=== PATIENT | male | born 1965 | race Caucasian/White ===

== ENCOUNTER 2016-11-15 04:35 | Inpatient (IN) | payer OTHER, MEDICARE ==
[~2016-11-15] VITALS: Ht 165.1 cm; Wt 56.9 kg
[2016-11-15] VITALS (20 sets, daily range): BP systolic 142–199; BP diastolic 77–102; PULSE 62–154; RESP 16–26; TEMP 97.6–99.7; O2SAT 94–100
[~2016-11-15 04:35] MED LIST: ASPI81CH CHEW; CARV12.52 PO; DULA10IN SQ; GABA300C5 PO; HUMALOG SQ; LEVA500T PO; LEVEMIR SQ; LISI10TA3 PO; METF500T PO; METO10TA PO; MULT1CHW70; PANT40TA3 PO
[2016-11-15] MEDS ORDERED: IOHEXOL 350 MG/ML 10 ML VIAL (for RAD DIAG) IVCONTRAST ONE (04:36)
[2016-11-15] MEDS ORDERED: ONDANSETRON HCL 4 MG/2 ML VIAL ONE (04:47)
[2016-11-15] MEDS ORDERED: NITROGLYCERIN 0.4 MG SL 25 TABS/BTL SL STA (04:50)
[2016-11-15] MEDS ORDERED: SODIUM CHLOR 0.9% 1000 ML INJ 1,000 ML IV ONE ×2 (04:50→05:00)
[2016-11-15] MEDS ORDERED: ASPIRIN 81 MG CHEW TAB PO STA (04:50)
[2016-11-15] MEDS ORDERED: METOCLOPRAMIDE HCL 10 MG/2 ML VIAL ONE (04:57)
[2016-11-15] MEDS ORDERED: ONDANSETRON HCL 4 MG/2 ML VIAL IV PUSH ONE (05:00)
[2016-11-15] MEDS ORDERED: SODIUM CHLORIDE 0.9% FLUSH 10 ML FLUSH IVF PRN (05:00)
[2016-11-15] MEDS ORDERED: METOCLOPRAMIDE HCL 10 MG/2 ML VIAL IV PUSH ONE (05:00)
[2016-11-15] MEDS ORDERED: NITROGLYCERIN-D5W 50 MG/250 ML 250 ML IV PRN (05:00)
[2016-11-15 05:04] LABS: I-STAT POTASSIUM 4.6 MMOL/L (3.5-4.9); I-STAT SODIUM 138 MMOL/L (138-146)
[2016-11-15 05:08] LABS: AUTOMATED NEUTROPHIL # 10.2 TH/MM3 (1.8-7.7); BASOPHIL # 0.1 TH/MM3 (0-0.2); BASOPHIL % 0.5 % (0.0-2.0); EOSINOPHIL # 0.2 TH/MM3 (0-0.4); EOSINOPHIL % 0.8 % (0.0-4.0); HEMATOCRIT 47.4 % (39.0-51.0); LYMPH % 37.7 % (9.0-44.0); LYMPHOCYTE # 7.4 TH/MM3 (1.0-4.8); MEAN CELL VOLUME 94.3 FL (80.0-100.0); MEAN CORPUSCULAR HEMOGLOBIN 32.3 PG (27.0-34.0); MEAN CORPUSCULAR HGB CONC 34.2 % (32.0-36.0); MONO % 9.5 % (0.0-8.0); NEUT % 51.5 % (16.0-70.0); PLATELET COUNT 425 TH/MM3 (150-450); RED BLOOD COUNT 5.03 MIL/MM3 (4.50-5.90); RED CELL DISTRIBUTION WIDTH 13.2 % (11.6-17.2); WHITE BLOOD COUNT 19.7 TH/MM3 (4.0-11.0)
--- NOTE | 2016-11-15 05:12 | PD ---
HPI Chief Complaint: STEMI Alert Time Seen by Provider: 04:45 Travel History International Travel<30 days: No Contact w/Intl Traveler<30days: No Traveled to known affect area: No History of Present Illness HPI The patient is a 51 year old male who presents to the [facility] emergency department with a history of coronary artery disease, diabetes mellitus, history of systolic congestive heart failure, and gastroparesis who presents with nausea and vomiting that began suddenly at 6 PM last night. He has had intractable vomiting since then. His significant other at the bedside reports that about an hour prior to arrival he began to have shortness of breath. He denies having any chest pain. He reports that he has back pain and midepigastric abdominal pain. He reports that both of those sites of pain are similar to when he has had intractable vomiting like this. The patient reports that his usual Zofran at home has not been helping. On review of systems otherwise, the patient denies any recent fevers, worsening cough or congestion, neck pain, diarrhea, urinary symptoms, or neurologic symptoms. [facility] Past Medical History Narrative Medical The patient's past medical history is significant for gastroparesis, diabetes mellitus, history of coronary artery disease status post HI in 2004 and stent placement, history of congestive heart failure, history of hypertension, hyperlipidemia, depression. Arthritis: Yes (in hands) Asthma: No Autoimmune Disease: No Blood Disorders: No Heart Rhythm Problems: Yes Cancer: No Cardiovascular Problems: Yes (HI WITH STENT, PACER/DEFIB, CHF) High Cholesterol: Yes Chemotherapy: No Chest Pain: Yes Congestive Heart Failure: Yes COPD: No Diabetes: Yes Patient Takes Glucophage: No Diminished Hearing: No Endocrine: Yes Gastrointestinal Disorders: Yes Genitourinary: No Hypertension: Yes Immune Disorder: No Implanted Vascular Access Dvce: Yes Neurologic: No Psychiatric: No Reproductive: No Respiratory: No Immunizations Current: Yes Myocardial Infarction: Yes (had pacemaker placed in 2006) Radiation Therapy: No Sleep Apnea: No Thyroid Disease: No Ulcer: Yes Tetanus Vaccination: Unknown Past Surgical History Narrative Surgical The patient's past surgical history is significant for a cardiac catheterization with stent placement, history of AICD placement approximately 3 years ago, appendectomy, cholecystectomy. Abdominal Surgery: Yes (APPENDECTOMY, CHOLECYSTECTOMY) AICD: Yes Appendectomy: Yes Body Medical Devices: PACEMAKER Cardiac Surgery: Yes (PACEMAKER DEFIB. CARDIAC STENTS) Cholecystectomy: Yes Ear Surgery: No Endocrine Surgery: No Eye Surgery: No Genitourinary Surgery: No Gynecologic Surgery: No Oral Surgery: Yes (ADNOIDECTOMY) Pacemaker: Yes (new battery last dec) Thoracic Surgery: No Tonsillectomy: Yes Other Surgery: Yes Social History Alcohol Use: No Tobacco Use: No Substance Use: No Allergies-Medications (Allergen,Severity, Reaction): Coded Allergies: No Known Allergies (Verified , 11/15/16) Reported Meds & Prescriptions Reported Meds & Active Scripts Active Reported Trulicity Inj (Dulaglutide Inj) 0.75 Mg/0.5 Ml Pen 0.75 Mg SQ Q7D Pantoprazole (Pantoprazole Sodium) 40 Mg Tab 40 Mg PO DAILY Multivitamin Adult (Multiple Vitamins W/ Minerals) 1 Chw Chw Metoclopramide (Metoclopramide HCl) 10 Mg Tab 10 Mg PO QID Metformin (Metformin HCl) 500 Mg Tab 500 Mg PO TIDPC With meals Lisinopril 10 Mg Tab 10 Mg PO DAILY Levemir Inj (Insulin Detemir) 1,000 unit/ 10 ML Vial 10 Units SQ HS Do not mix with any other Insulin. Humalog Inj (Insulin Human Lispro) 1,000 Unit/10 Ml Vial 1-9 Units SQ ACHS Max dose at bedtime:( )units; sugars< 70,(0)units; sugars 150-199,(1)unit; sugars 200-249,(3)units; sugars 250-299,(5)units; sugars 300-349,(7)units; sugars more than 349,(9)units. Gabapentin 300 Mg Cap 300 Mg PO TID Carvedilol 12.5 Mg Tab 12.5 Mg PO BID Aspirin 81 Mg Chew 81 Mg CHEW DAILY Review of Systems Except as stated in HPI: all other systems reviewed are Neg General / Constitutional: No: Fever Eyes: No: Visual changes HENT: No: Headaches Cardiovascular: Positive: Dyspnea on exertion, No: Chest Pain or Discomfort Respiratory: Positive: Shortness of Breath Gastrointestinal: Positive: Nausea, Vomiting, Abdominal Pain, Indigestion, No: Changes in Bowel Habits, Loss of Appetite Genitourinary: No: Dysuria Musculoskeletal: No: Pain Skin: No Rash Neurologic: Positive: Weakness (generalized weakness), No: Focal Abnormalities , Change in Mentation, Slurred Speech, Sensory Disturbance Psychiatric: No: Depression Endocrine: No: Polydipsia Hematologic/Lymphatic: No: Easy Bruising Physical Exam Narrative General: The patient is a well-developed, thin appearing male who appears to be uncomfortable on examination, sitting forward, having dry heaving on exam. Head and Neck exam: Head is normocephalic atraumatic. Eyes: EOMI, pupils are equal round and reactive to light. Nose: Midline septum with pink mucous membranes Mouth: Dentition unremarkable. Moist mucus membranes. Posterior oropharynx is not erythematous. No tonsillar hypertrophy. Uvula midline. Airway patent. Neck: No palpable lymphadenopathy. No nuchal rigidity. No thyromegaly. Cardiovascular: Regular sounding tachycardia in the 150s on arrival without murmurs, gallops, or rubs. No pulse deficit to the extremities on simultaneous auscultation and palpation of his radial artery. Lungs: Clear to auscultation bilaterally. No wheezes, rhonchi, or rales. Abdomen: Soft, without tenderness to palpation in all 4 quadrants of the abdomen. No guarding, rebound, or rigidity. Normal bowel sounds are audible. No tenderness on palpation of McBurney's point. No pulsatile mass. Extremities: No clubbing, cyanosis, or edema. 2+ pulses in all 4 extremities. No calf tenderness on palpation. Back: No spinous process tenderness to palpation. No costovertebral angle tenderness to palpation. Neurologic Exam: Grossly nonfocal. Skin Exam: No rash noted. Intact skin that is warm and diaphoretic. Data Data Last Documented VS Vital Signs Date Time Temp Pulse Resp B/P (MAP) Pulse Ox O2 Delivery O2 Flow Rate FiO2 11/15/16 05:00 100 Nasal Cannula 4.00 11/15/16 04:59 11/15/16 04:43 62 16 Orders Orders Ondansetron Inj (Zofran Inj) (11/15/16 04:47) Troponin I (11/15/16 04:50) Ckmb (Isoenzyme) Profile (11/15/16 04:50) Complete Blood Count With Diff (11/15/16 04:50) I-Stat Profile (11/15/16 04:50) I-Stat Creatinine (11/15/16 04:50) Calcium (11/15/16 04:50) Magnesium (Mg) (11/15/16 04:50) Prothrombin Time / Inr (Pt) (11/15/16 04:50) Act Partial Throm Time (Ptt) (11/15/16 04:50) B-Type Natriuretic Peptide (11/15/16 04:50) Chest, Single Ap (11/15/16 04:50) Electrocardiogram (11/15/16 04:50) Oxygen Administration (11/15/16 04:50) Iv Access Insert/Monitor (11/15/16 04:50) Oximetry (11/15/16 04:50) Sodium Chlor 0.9% 1000 Ml Inj (Ns 1000 M (11/15/16 04:50) Sodium Chloride 0.9% Flush (Ns Flush) (11/15/16 05:00) Aspirin Chew (Aspirin Chew) (11/15/16 04:50) Nitroglycerin Sl (Nitrostat Sl) (11/15/16 04:50) Nitroglycerin-D5w 50 Mg/250 Ml (Nitrogly (11/15/16 05:00) Sodium Chlor 0.9% 1000 Ml Inj (Ns 1000 M (11/15/16 05:00) Ondansetron Inj (Zofran Inj) (11/15/16 05:00) Metoclopramide Inj (Reglan Inj) (11/15/16 05:00) Metoclopramide Inj (Reglan Inj) (11/15/16 04:57) Morphine Inj (Morphine Inj) (11/15/16 05:30) Blood Gas Venous Ph (11/15/16 05:24) Ct Abd/Pel W Iv Contrast(Rout) (11/15/16 05:26) CKMB (11/15/16 04:58) CKMB% (11/15/16 04:58) Hepatic Functional Panel (11/15/16 04:58) Lipase (11/15/16 04:58) Iohexol 350 Inj (Omnipaque 350 Inj) (11/15/16 04:36) Consult Cardiology (11/15/16 ) Bedside Glucose HAYLEY.CSUGAR (11/15/16 06:13) Blood Glucose Goal (Criteria) (11/15/16 06:13) Hypoglycemia 70 Mg/Dl Or < (11/15/16 06:13) Notify Dr: Other (11/15/16 06:13) Dextrose 50% In Hallie (Vial) Inj (D50w (Vi (11/15/16 06:15) Glucagon Inj (Glucagon Inj) (11/15/16 06:15) Insulin Aspart Supplemtl Scale (Novolog (11/15/16 08:00) Admit To Inpatient (11/15/16 ) Vital Signs (Adult) Q4H (11/15/16 06:13) Activity Oob Ad Fozia (11/15/16 06:13) Diet Npo (11/15/16 Breakfast) Sodium Chlor 0.9% 1000 Ml Inj (Ns 1000 M (11/15/16 06:13) Sodium Chloride 0.9% Flush (Ns Flush) (11/15/16 06:15) Sodium Chloride 0.9% Flush (Ns Flush) (11/15/16 09:00) Acetaminophen (Tylenol) (11/15/16 06:15) Ondansetron Inj (Zofran Inj) (11/15/16 06:15) Comprehensive Metabolic Panel (11/16/16 06:00) Complete Blood Count With Diff (11/16/16 06:00) Troponin I (11/15/16 10:00) Troponin I (11/15/16 16:00) Morphine Inj (Morphine Inj) (11/15/16 06:15) Oxycodone (Roxicodone) (11/15/16 06:15) Docusate Sodium-Senna (Yodit-Colace) (11/15/16 09:00) Magnesium Hydroxide Liq (Milk Of Magnesi (11/15/16 06:15) Sennosides (Senokot) (11/15/16 06:15) Bisacodyl Supp (Dulcolax Supp) (11/15/16 06:15) Lactulose Liq (Lactulose Liq) (11/15/16 06:15) Inpatient Certification (11/15/16 ) Promethazine Inj (Phenergan Inj) (11/15/16 06:15) Metoclopramide Inj (Reglan Inj) (11/15/16 09:00) Aspirin Chew (Aspirin Chew) (11/15/16 09:00) Carvedilol (Coreg) (11/15/16 09:00) Insulin Detemir Inj (Levemir Inj) (11/15/16 21:00) Lisinopril (Prinivil) (11/15/16 09:00) Pantoprazole (Protonix) (11/15/16 09:00) Admit Order (Ed Use Only) (11/15/16 06:19) Labs Laboratory Tests Test 11/15/16 04:50 11/15/16 04:58 11/15/16 05:29 White Blood Count 19.7 TH/MM3 Red Blood Count 5.03 MIL/MM3 Hemoglobin 16.2 GM/DL Hematocrit 47.4 % Mean Corpuscular Volume 94.3 FL Mean Corpuscular Hemoglobin 32.3 PG Mean Corpuscular Hemoglobin Concent 34.2 % Red Cell Distribution Width 13.2 % Platelet Count 425 TH/MM3 Mean Platelet Volume 8.1 FL Neutrophils (%) (Auto) 51.5 % Lymphocytes (%) (Auto) 37.7 % Monocytes (%) (Auto) 9.5 % Eosinophils (%) (Auto) 0.8 % Basophils (%) (Auto) 0.5 % Neutrophils # (Auto) 10.2 TH/MM3 Lymphocytes # (Auto) 7.4 TH/MM3 Monocytes # (Auto) 1.9 TH/MM3 Eosinophils # (Auto) 0.2 TH/MM3 Basophils # (Auto) 0.1 TH/MM3 CBC Comment AUTO DIFF Differential Total Cells Counted 100 Neutrophils % (Manual) 55 % Lymphocytes % 39 % Monocytes % 5 % Eosinophils % 1 % Neutrophils # (Manual) 10.8 TH/MM3 Differential Comment FINAL DIFF MANUAL Atypical Lymphocytes % Platelet Estimate NORMAL Platelet Morphology Comment NORMAL Red Cell Morphology Comment NORMAL Prothrombin Time 10.8 SEC Prothromb Time International Ratio 1.0 RATIO Activated Partial Thromboplast Time 21.4 SEC B-Type Natriuretic Peptide 39 PG/ML Bedside Hemoglobin 16.7 G/DL Bedside Hematocrit 49.0 % Bedside Sodium 138 MMOL/L Bedside Potassium 4.6 MMOL/L Bedside Chloride 105 MMOL/L Bedside Blood Urea Nitrogen 21 MG/DL Bedside Creatinine 1.1 MG/DL Bedside Glucose 291 MG/DL Calcium Level 9.9 MG/DL Magnesium Level 1.9 MG/DL Total Bilirubin 0.7 MG/DL Direct Bilirubin 0.1 MG/DL Indirect Bilirubin 0.6 MG/DL Aspartate Amino Transf (AST/SGOT) 24 U/L Alanine Aminotransferase (ALT/SGPT) 27 U/L Alkaline Phosphatase 91 U/L Total Creatine Kinase 106 U/L Creatine Kinase MB 1.7 NG/ML Troponin I LESS THAN 0.02 NG/ML Total Protein 8.5 GM/DL Albumin 4.6 GM/DL Lipase 239 U/L Venous Blood pH 7.33 [facility] Medical Decision Making Medical Screen Exam Complete: Yes Emergency Medical Condition: Yes Medical Record Reviewed: Yes Interpretation(s) Last Impressions Abdomen/Pelvis CT 11/15/16 0526 Signed Impressions: Service Date/Time: Tuesday, November 15, 2016 05:45 - CONCLUSION: Question mild colitis. Otherwise stable nonacute exam appearance Richard Randall MD Chest X-Ray 11/15/16 0450 Signed Impressions: Service Date/Time: Tuesday, November 15, 2016 04:57 - CONCLUSION: No acute disease Richard Randall MD Differential Diagnosis Acute coronary syndrome, versus aortic dissection, versus acid reflux, versus electrolyte derangements, versus dehydration Narrative Course During the course of the patients emergency department visit, the patients history, examination, and differential diagnosis were reviewed with the patient. The patient had IV access obtained and blood work sent for analysis. The patient had an ECG done on arrival that shows a sinus tachycardia rate of 158, ST segment elevation in V1, V2, V3, aVL with ST segment depression in lead 2, 3, aVF, V5, V6. A STEMI alert was called. He spoke to Dr. Juarez regarding this patient's case. The patient's initial ECG was reviewed by him. The patient was initially provided normal saline a 1 L IV fluid bolus, Zofran 4 mg IV. Aspirin 324 mg by mouth 1, nitroglycerin sublingual was administered. A repeat ECG was done after the patient's heart rate came down into the 90s to low 100s. The patient's repeat ECG shows a sinus tachycardia rate of 103, no acute ST segment elevation is noted. No evidence of ST segment depression. The repeat ECG was sent to Dr. Juarez for review. The STEMI alert was canceled as the patient's acute findings appeared to have resolved. The patient will be seen in consultation. The patients laboratory studies were reviewed and remarkable for initial set of cardiac enzymes are negative. The patient's white count is 19.7, hemoglobin 16.2, platelets 425 with monocytes 9.5, liver function tests are within normal limits, lipase 239, PT 10.8, PTT 21.4, ABG shows a pH of 7.33 Radiology studies were reviewed and remarkable for a chest x-ray that shows no evidence of cardiopulmonary disease. The patients results were discussed with the patient, including the plan of care. I explained that further testing and/ or monitoring is indicated based on the patients history, examination, and/ or laboratory findings. Therefore, I recommended admission for additional evaluation. The patient expressed understanding and was agreeable with this plan. The patient was admitted to the hospital in guarded condition and [facility] Critical Care Narrative Aggregate critical care time was 38 minutes. Time to perform other separately billable procedures was not included in the critical care time. My time did not include minutes spent treating any other patients simultaneously or on activities that did not directly contribute to the patient's treatment. The services I provided to this patient were to treat and/or prevent clinically significant deterioration that could result in: Cardiovascular collapse, versus cardiac arrhythmia, versus aspiration I provided critical care services requiring my management, as noted below: Chart data review, documentation time, medication orders and management, vital sign assessments/reviewing monitor data, ordering and reviewing lab tests, ordering and interpreting/reviewing x-rays and diagnostic studies, care of the patient and discussion of the patient with the admitting physicians. Physician Communication Physician Communication A STEMI alert was called at 4:[address] Juarez was called. The patient's case was discussed further with him. The patient's EKG was reviewed with him. Given the patient's findings he plans to take the patient to the cardiac catheterization lab. Shortly after the patient's first liter of IV fluid and treatment for nausea vomiting the patient's heart rate again to improve down to the 90s to low 100s. A repeat ECG was done. This ECG was also transmitted to the recording studio intern on-call. After reevaluation of this ECG, the patient's emergent evaluation in the cardiac catheterization lab was canceled. He will see the patient consultation. The patient's case is also discussed with Dr. Fraga who did agree to admit the patient for further evaluation and treatment at this time. Diagnosis Primary Impression: Intractable nausea and vomiting Qualified Codes: R11.2 - Nausea with vomiting, unspecified Additional Impressions: Hx of diabetic gastroparesis Acute coronary syndrome Admitting Information Admitting Physician Requests: Admit Mayelin Solis MD Nov 15, 2016 05:12
[2016-11-15 05:13] LABS: APTT (PATIENT) 21.4 SEC (24.3-30.1); PROTHROMBIN TIME - PATIENT 10.8 SEC (9.8-11.6)
[2016-11-15 05:14] LABS: HEMO FLAGS AUTO DIFF
[2016-11-15] MEDS ORDERED: MORPHINE SULFATE 4 MG/ML INJ IV PUSH ONE (05:30)
[2016-11-15 05:31] LABS: CREATINE KINASE 106 U/L (39-308); MAGNESIUM 1.9 MG/DL (1.5-2.5)
[2016-11-15 05:42] LABS: ALT (GPT) 27 U/L (12-78)
[2016-11-15 05:44] LABS: EOSINOPHILS 1 % (0-4); NEUTROPHIL # MANUAL DIFF 10.8 TH/MM3 (1.8-7.7); POLYS (SEG NEUTROPHILS) 55 % (16-70); WBC DIFF SAMPLE 100
[2016-11-15 05:44] LABS: ALKALINE PHOSPHATASE 91 U/L (45-117); CKMB 1.7 NG/ML (0.5-3.6); TOTAL BILIRUBIN ADULT 0.7 MG/DL (0.2-1.0)
[2016-11-15 05:45] LABS: AST (GOT) 24 U/L (15-37); INDIRECT BILIRUBIN 0.6 MG/DL (0.0-0.8)
[2016-11-15 05:45] LABS: PLATELET ESTIMATE SMEAR NORMAL (NORMAL); PLATELET MORPHOLOGY NORMAL (NORMAL); SCAN/DIFF FINAL DIFF MANUAL
--- NOTE | 2016-11-15 05:49 | RADRPT ---
EXAM DATE/TIME: 11/15/2016 04:57 [facility] COMPARISON: CHEST SINGLE AP, November 02, 2015, 13:35. INDICATIONS : STEMI ALERT, chest pain. MEDICAL HISTORY : Cardiovascular disease. Hypertension Diabetes mellitus type II. CO SURGICAL HISTORY : Appendectomy. Cholecystectomy. Pacemaker. ENCOUNTER: Initial ACUITY: 1 day PAIN SCORE: 10/10 LOCATION: Bilateral chest FINDINGS: Pacemaker device is noted with control pack over the left chest. Lungs are focally clear. No pleural effusion is evident. Cardiac contours are satisfactory and stable. CONCLUSION: No acute disease Richard Randall MD on November 15, 2016 at 5:48 Board Certified Radiologist. This report was verified electronically.
--- NOTE | 2016-11-15 06:05 | RADRPT ---
EXAM DATE/TIME: 11/15/2016 05:45 [facility] COMPARISON: CT ABDOMEN & PELVIS W CONTRAST, May 16, 2014, 15:15. CT ABDOMEN & PELVIS W/O CONTRAST, March, 9:34. INDICATIONS : Abdomen pain with vomiting. IV CONTRAST: 70 cc Omnipaque 350 (iohexol) IV ORAL CONTRAST: No oral contrast ingested. RADIATION DOSE: 4.72 CTDIvol (mGy) MEDICAL HISTORY : Cardiovascular disease. Hypertension. Diabetes mellitus type 2. SURGICAL HISTORY : Coronary artery stent. Pacemaker.Appendectomy.GB ENCOUNTER: Initial ACUITY: 1 day PAIN SCALE: 8/10 LOCATION: abdomen TECHNIQUE: Volumetric scanning of the abdomen and pelvis was performed. Using automated exposure control and ad justment of the mA and/or kV according to patient size, radiation dose was kept as low as reasonably achievable to obtain optimal diagnostic quality images. DICOM format image data is available electro nically for review and comparison. FINDINGS: LOWER LUNGS: The visualized lower lungs are clear. LIVER: Homogeneous density without lesion. There is no dilation of the biliary tree. Gallbladder surgically absent.. SPLEEN: Normal size without lesion. PANCREAS: Within normal limits. KIDNEYS: Stable renal cysts. No hydronephrosis or stone. ADRENAL GLANDS: Within normal limits. VASCULAR: There is no aortic aneurysm. BOWEL/MESENTERY: Small hiatal hernia which is unchanged. Suggestion of diffuse mild colonic wall thickening, however a ppearance similar to at least one of the previous exams. No abnormal dilatation of bowel. No focal in flammatory changes. ABDOMINAL WALL: Within normal limits. RETROPERITONEUM: There is no lymphadenopathy. BLADDER: No wall thickening or mass. REPRODUCTIVE: Within normal limits. INGUINAL: There is no lymphadenopathy or hernia. MUSCULOSKELETAL: Within normal limits for patient age. CONCLUSION: Question mild colitis. Otherwise stable nonacute exam appearance Richard Randall MD on November 15, 2016 at 5:59 Board Certified Radiologist. This report was verified electronically.
[2016-11-15] MEDS ORDERED: BISACODYL 10 MG SUPP RECTAL PRN (06:15)
[2016-11-15] MEDS ORDERED: LACTULOSE SYRUP 20 GM/30 ML CUP PO PRN (06:15)
[2016-11-15] MEDS ORDERED: MORPHINE SULFATE 4 MG/ML INJ IV PUSH PRN (06:15)
[2016-11-15] MEDS ORDERED: SODIUM CHLORIDE 0.9% FLUSH 10 ML FLUSH IV FLUSH PRN (06:15)
[2016-11-15] MEDS ORDERED: DEXTROSE 50% IN WATER 50 ML VIAL(D50) IV PUSH PRN (06:15)
[2016-11-15] MEDS ORDERED: ACETAMINOPHEN 325 MG TAB PO PRN (06:15)
[2016-11-15] MEDS ORDERED: SENNOSIDES 8.6 MG TAB PO PRN (06:15)
[2016-11-15] MEDS ORDERED: GLUCAGON 1 MG/ML VIAL OTHER PRN (06:15)
[2016-11-15] MEDS ORDERED: MAGNESIUM HYDROXIDE SUSP 30 ML CUP PO PRN (06:15)
[2016-11-15] MEDS ORDERED: PROMETHAZINE INJ 25 MG/ML VIAL IM PRN (06:15)
[2016-11-15] MEDS: SODIUM CHLOR 0.9% 1000 ML INJ 1,000 ML IV SCH ×2 (08:01→16:28)
[2016-11-15] MEDS: INSULIN ASPART SUPPLEMENTAL SCALE SQ SCH ×4 (08:19→21:41)
[2016-11-15] MEDS: METOCLOPRAMIDE HCL 10 MG/2 ML VIAL IV PUSH SCH ×2 (08:19→16:55)
[2016-11-15] MEDS: ASPIRIN 81 MG CHEW TAB CHEW SCH (08:20)
[2016-11-15] MEDS: DOCUSATE SODIUM 50 MG/SENNA 8.6 MG TAB PO SCH ×2 (08:20→21:42)
[2016-11-15] MEDS: SODIUM CHLORIDE 0.9% FLUSH 10 ML FLUSH IV FLUSH SCH ×2 (08:20→21:42)
[2016-11-15] MEDS: CARVEDILOL 12.5 MG TAB PO SCH ×2 (08:20→21:42)
[2016-11-15] MEDS: LISINOPRIL 10 MG TAB PO SCH (08:20)
[2016-11-15] MEDS ORDERED: PANTOPRAZOLE SOD 40 MG DELAYED RELEASE TAB PO SCH (09:00)
--- NOTE | 2016-11-15 12:25 | EKG ---
Date Performed: 11/15/2016 Time Performed: 04:43:31 PTAGE: 51 years EKG: SINUS TACHYCARDIA, POSSIBLE ATRIAL FLUTTER Compared to PREVIOUS TRACING sinus tachycardia is now present, there has been improvement in nonspec ific T wave changes PREVIOUS TRACIN01/28/2016 08.59 DOCTOR: Tony Albrecht Interpretating Date/Time 11/15/2016 12:24:45
--- NOTE | 2016-11-15 12:43 | EKG ---
Date Performed: 11/15/2016 Time Performed: 05:07:58 PTAGE: 51 years EKG: SINUS TACHYCARDIA SEPTAL MYOCARDIAL INFARCTION ABNORMAL ECG Compared to prior tracing no si gnificant change PREVIOUS TRACING 11/15/2016 04.43.31 DOCTOR: Tony Albrecht Interpretating Date/Time 11/15/2016 12:37:40
[2016-11-15] MEDS: ONDANSETRON HCL 4 MG/2 ML VIAL IVP PRN (14:09)
[2016-11-15] MEDS: amLODIPine BESYLATE 5 MG TAB PO SCH (14:09)
--- NOTE | 2016-11-15 14:24 | HHI.HP ---
HPI Service [facility] Primary Care Physician No Primary Care Physician Admission Diagnosis Intractable vomiting, ST changes, hyperglycemia Diagnoses: Chief Complaint: Nausea, vomiting Travel History International Travel<30 Days: No Contact w/Intl Traveler <30 Da: No Traveled to Known Affected Are: No History of Present Illness Mr. Peterson is a 51 year old male with a history of diabetes mellitus, gastroparesis, CAD s/p stents who presented to the ED on 11/15/2016 due to intractable nausea, vomiting, abdominal pain that started on 11/13/2016. On Tuesday11/13/2016, he had some stomachache. However, this morning he started experiencing intractable nausea, vomiting. He was unable to keep anything down. No fever, chills. Denies changes in bowel or bladder habits. Upon arrival, EKG was suspicious for ST elevation, tachycardia. STEMI alert was initiated. A repeat EKG did not reveal ST elevation and subsequently STEMI alert was cancelled. Review of Systems Except as stated in HPI: all other systems reviewed are Neg Past Family Social History Past Medical History Coronary artery disease s/p stents Ischemic cardiomyopathy with AICD placement Diabetes mellitus Diabetic neuropathy Gastroparesis Past Surgical History Cholecystectomy Reported Medications Trulicity Inj (Dulaglutide Inj) 0.75 Mg/0.5 Ml Pen 0.75 Mg SQ Q7D Pantoprazole (Pantoprazole Sodium) 40 Mg Tab 40 Mg PO DAILY Multivitamin Adult (Multiple Vitamins W/ Minerals) 1 Chw Chw Metoclopramide (Metoclopramide HCl) 10 Mg Tab 10 Mg PO QID Metformin (Metformin HCl) 500 Mg Tab 500 Mg PO TIDPC With meals Lisinopril 10 Mg Tab 10 Mg PO DAILY Levemir Inj (Insulin Detemir) 1,000 unit/ 10 ML Vial 10 Units SQ HS Do not mix with any other Insulin. Humalog Inj (Insulin Human Lispro) 1,000 Unit/10 Ml Vial 1-9 Units SQ ACHS Max dose at bedtime:( )units; sugars< 70,(0)units; sugars 150-199,(1)unit; sugars 200-249,(3)units; sugars 250-299,(5)units; sugars 300-349,(7)units; sugars more than 349,(9)units. Gabapentin 300 Mg Cap 300 Mg PO TID Carvedilol 12.5 Mg Tab 12.5 Mg PO BID Aspirin 81 Mg Chew 81 Mg CHEW DAILY Allergies: Coded Allergies: No Known Allergies (Verified , 11/15/16) Family History Mother - diabetes mellitus Father had heart disease. Social History Does not use tobacco or alcohol. However, he sometimes use marijuana to get relief of abdominal discomfort. Physical Exam Vital Signs Vital Signs Date Time Temp Pulse Resp B/P (MAP) Pulse Ox O2 Delivery O2 Flow Rate FiO2 11/15/16 14:03 69 11/15/16 13:02 77 11/15/16 12:30 97.6 68 16 157/87 (110) 97 11/15/16 09:05 98.0 65 18 168/85 (112) 100 11/15/16 08:38 97.8 64 17 168/82 (110) 98 11/15/16 07:05 17 98 Room Air 11/15/16 07:05 97.8 64 17 180/81 (114) 98 Room Air 11/15/16 07:05 17 11/15/16 07:05 99 Room Air 11/15/16 07:05 64 17 98 Room Air 11/15/16 05:00 100 Nasal Cannula 4.00 11/15/16 05:00 100 4.00 11/15/16 04:59 99 Nasal Cannula 2.00 11/15/16 04:58 100 Nasal Cannula 2.00 11/15/16 04:43 62 16 199/96 (130) 99 11/15/16 04:41 154 26 188/102 (130) 94 Room Air Physical Exam GENERAL: This is a well-nourished, well-developed patient, in mild distress due to nausea, vomiting. SKIN: No rashes, ecchymoses or lesions. Warm and dry. HEAD: Atraumatic. Normocephalic. No temporal or scalp tenderness. EYES: Pupils equal round and reactive. No injection or drainage. ENT: Nose without bleeding, purulent drainage or septal hematoma. Airway patent. NECK: Trachea midline. No lymphadenopathy. Supple, nontender, no meningeal signs. CARDIOVASCULAR: Regular rate and rhythm without murmurs, gallops, or rubs. No JVD. RESPIRATORY: Clear to auscultation. Breath sounds equal bilaterally. No wheezes , rales, or rhonchi. GASTROINTESTINAL: Abdomen soft, Diffuse tenderness on palpation, nondistended. No guarding. MUSCULOSKELETAL: Extremities without clubbing, cyanosis, or edema. NEUROLOGICAL: Awake and alert. Cranial nerves II through XII intact. No focal neurological deficits. Normal speech. Laboratory Laboratory Tests Test 11/15/16 04:50 11/15/16 04:58 11/15/16 05:29 White Blood Count 19.7 Red Blood Count 5.03 Hemoglobin 16.2 Hematocrit 47.4 Mean Corpuscular Volume 94.3 Mean Corpuscular Hemoglobin 32.3 Mean Corpuscular Hemoglobin Concent 34.2 Red Cell Distribution Width 13.2 Platelet Count 425 Mean Platelet Volume 8.1 Neutrophils (%) (Auto) 51.5 Lymphocytes (%) (Auto) 37.7 Monocytes (%) (Auto) 9.5 Eosinophils (%) (Auto) 0.8 Basophils (%) (Auto) 0.5 Neutrophils # (Auto) 10.2 Lymphocytes # (Auto) 7.4 Monocytes # (Auto) 1.9 Eosinophils # (Auto) 0.2 Basophils # (Auto) 0.1 CBC Comment AUTO DIFF Differential Total Cells Counted 100 Neutrophils % (Manual) 55 Lymphocytes % 39 Monocytes % 5 Eosinophils % 1 Neutrophils # (Manual) 10.8 Differential Comment FINAL DIFF MANUAL Atypical Lymphocytes Platelet Estimate NORMAL Platelet Morphology Comment NORMAL Red Cell Morphology Comment NORMAL Prothrombin Time 10.8 Prothromb Time International Ratio 1.0 Activated Partial Thromboplast Time 21.4 B-Type Natriuretic Peptide 39 Bedside Hemoglobin 16.7 Bedside Hematocrit 49.0 Bedside Sodium 138 Bedside Potassium 4.6 Bedside Chloride 105 Bedside Blood Urea Nitrogen 21 Bedside Creatinine 1.1 Bedside Glucose 291 Calcium Level 9.9 Magnesium Level 1.9 Total Bilirubin 0.7 Direct Bilirubin 0.1 Indirect Bilirubin 0.6 Aspartate Amino Transf (AST/SGOT) 24 Alanine Aminotransferase (ALT/SGPT) 27 Alkaline Phosphatase 91 Total Creatine Kinase 106 Creatine Kinase MB 1.7 Troponin I LESS THAN 0.02 Total Protein 8.5 Albumin 4.6 Lipase 239 Venous Blood pH 7.33 Result Diagram: 11/15/16 0450 Imaging Last Impressions Abdomen/Pelvis CT 11/15/16 0526 Signed Impressions: Service Date/Time: Tuesday, November 15, 2016 05:45 - CONCLUSION: Question mild colitis. Otherwise stable nonacute exam appearance Richard Randall MD Chest X-Ray 11/15/16 0480 Signed Impressions: Service Date/Time: Tuesday, November 15, 2016 04:57 - CONCLUSION: No acute disease MD Dilshad Alcantar VTE Risk Assessment [place] VTE Risk Assessment: Mod/High Risk (score >= 2) Caprini Risk Assessment Model Point Value = 1 Point Value = 2 Point Value = 3 Point Value = 5 Age 41-60 Minor surgery BMI > 25 kg/m2 Swollen legs Varicose veins or History of unexplained or recurrent spontaneous Oral contraceptives or hormone replacement Sepsis (< 1 month) Serious lung disease, including pneumonia (< 1 month) Abnormal pulmonary function Acute myocardial infarction Congestive heart failure (< 1 month) History of inflammatory bowel disease Medical patient at bed rest Age 61-74 Arthroscopic surgery Major open surgery (> 45 min) Laparoscopic surgery (> 45 min) Malignancy Confined to bed (> 72 hours) Immobilizing plaster cast Central venous access Age >= 75 History of VTE Family history of VTE Factor V Leiden Prothrombin [id number] Lupus anticoagulant Anticardiolipin antibodies Elevated serum homocysteine Heparin-induced thrombocytopenia Other congenital or acquired thrombophilia Stroke (< 1 month) Elective arthroplasty Hip, pelvis, or leg fracture Acute spinal cord injury (< 1 month) Prophylaxis Regimen Total Risk Factor Score Risk Level Prophylaxis Regimen 0-1 Low Early ambulation 2 Moderate Order ONE of the following: *Sequential Compression Device (SCD) *Heparin 5000 units SQ BID 3-4 Higher Order ONE of the following medications: *Heparin 5000 units SQ TID *Enoxaparin/Lovenox 40 mg SQ daily (WT < 150 kg, CrCl > 30 mL/min) *Enoxaparin/Lovenox 30 mg SQ daily (WT < 150 kg, CrCl > 10-29 mL/min) *Enoxaparin/Lovenox 30 mg SQ BID (WT < 150 kg, CrCl > 30 mL/min) AND/OR *Sequential Compression Device (SCD) 5 or more Highest Order ONE of the following medications: *Heparin 5000 units SQ TID (Preferred with Epidurals) *Enoxaparin/Lovenox 40 mg SQ daily (WT < 150 kg, CrCl > 30 mL/min) *Enoxaparin/Lovenox 30 mg SQ daily (WT < 150 kg, CrCl > 10-29 mL/min) *Enoxaparin/Lovenox 30 mg SQ BID (WT < 150 kg, CrCl > 30 mL/min) AND *Sequential Compression Device (SCD) Assessment and Plan Problem List: (1) Gastroparesis ICD Code: K31.84 - Gastroparesis Status: Acute (2) Diabetes mellitus ICD Code: E11.9 - Type 2 diabetes mellitus without complications (3) CAD (coronary artery disease) ICD Code: I25.10 - Atherosclerotic heart disease of [place] coronary artery without angina pectoris Status: Acute Code Status Mr. Peterson is a 51 year old male with a history of ischemic cardiomyopathy, CAD, Diabetes mellitus, gastroparesis who presented to the hospital due to abdominal, intractable nausea, vomiting. Although initial EKG was indicative of STEMI, subsequent EKG did not show ST elevation and also patient did not have any chest pain. - Acute exacerbation of Gastroparesis - Intractable nausea, vomiting, abdominal pain - GI consulted, likely EGD in the AM - Clear liquid diet for now, NPO midnight. - Continue Reglan 10mg IV Q6hrs. - Morphine for pain. - Hypertension - CAD s/p stent placement in 2004 - Ischemic cardiomyopathy s/p AICD placement - Continue Aspirin 81mg Qday, Amlodipine 5mg Qday, Carvedilol 12.5mg BID, Lisinopril 10mg Qday - Initiate Lipitor 80mg QHS - Diabetes mellitus - Continue Levemir 10 units QHS, sliding scale insulin. Full code. SCDs for now. Will consider Lovenox in the next 1-2 days. Physician Certification 2 Midnight Certification Type: Admission for Inpatient Services Order for Inpatient Services The services are ordered in accordance with Medicare regulations or non- Medicare payer requirements, as applicable. In the case of services not specified as inpatient-only, they are appropriately provided as inpatient services in accordance with the 2-midnight benchmark. Estimated LOS (days): 2 days is the estimated time the patient will need to remain in the hospital, assuming treatment plan goals are met and no additional complications. Post-Hospital Plan: Home Waldemar Bolanos DO Nov 15, 2016 14:24
--- NOTE | 2016-11-15 15:07 | MB ---
cc: FRANKIE OLIVAS M.D. DATE OF CONSULTATION: 11/15/2016 REASON FOR CONSULTATION Evaluation of heart disease. HISTORY OF PRESENT ILLNESS Jai Peterson is a 51-year-old man with known ischemic heart disease. He had an anterior wall myocardial infarction February 03, 2005, at that time he had stenting of the proximal LAD with a 3.0 x 23 mm and 3.0 x 8 mm Cypher stents. The circumflex artery just had minimal plaque distally and was dominant, the right coronary artery was nondominant. At that time he had balloon of the diagonal branch through the site of the stent with 2.5 mm balloon. His last cath was September 29, 2005, the left main had 40-50% eccentric ostial disease, his LAD stent was okay, there was 40% stenosis of the first diagonal, ejection fraction was only 20%. He has a [employer]tronic defibrillator. He has diabetes and suffers with gastroparesis. He comes in now with unrelenting nausea and vomiting and mid abdominal pain. He does not have typical cardiac type symptoms. The abdominal pain and vomiting are continuing. He has been diagnosed with gastroparesis before. He does not have regular followup apparently with a GI doctor because of his insurance. PAST MEDICAL HISTORY Past medical history includes: 1. Defibrillator. 2. Ischemic cardiomyopathy. 3. Type 2 diabetes. 4. Gastroparesis due to diabetes. 5. Hyperlipidemia. 6. Neuropathy. PAST SURGICAL HISTORY 1. Defibrillator. 2. Previous cath procedures and stent. MEDICATION He was on: 1. Carvedilol 12.5 p.o. b.i.d. 2. Lisinopril 10 mg daily. 3. Aspirin prior to admission. Previously he had been tried on Entresto and could not tolerate it. ALLERGIES None known. FAMILY HISTORY Family history is positive for type 2 diabetes in the father and heart disease in the father. SOCIAL HISTORY He is a former smoker, he stopped smoking a year and a half ago. REVIEW OF SYSTEMS Otherwise noncontributory. PHYSICAL EXAMINATION GENERAL: Physical exam reveals a well-developed, well-nourished white male laying supine in bed, he appears uncomfortable. VITAL SIGNS: Charted. HEENT: Exam unremarkable. NECK: No JVD, no bruits. CHEST: Clear to auscultation. CARDIAC: Normal first and second heart sounds, regular rate and rhythm. No murmurs or gallops. ABDOMEN: Shows a mid abdominal mild tenderness. Bowel sounds are positive. EXTREMITIES: Reveal no peripheral edema. Pulses are intact. EKG His EKGs have shown poor R-wave progression consistent with an ___ septal RI. He has had sinus tachycardia on two of the tracings. IMPRESSION Mid abdominal pain with nausea, vomiting. Sounds more suggestive of gastroparesis than his heart. Initial troponin is negative. Repeat troponins are pending. Will go ahead and get GI consulted. If the troponins remain normal he is cleared to have endoscopy if they feel it is necessary. Further therapy to be determined. MD SAMANTHA Cunha/MOSHE /1:52 PM /2:36 PM
[2016-11-15] MEDS ORDERED: hydrALAZINE HCL 20 MG/ML VIAL IV PUSH PRN (16:15)
[2016-11-15] MEDS ORDERED: PANTOPRAZOLE SODIUM 40 MG VIAL IV PUSH SCH (17:00)
--- NOTE | 2016-11-15 17:24 | PD.CONS ---
HPI History of Present Illness This is a 51 year old male with hx gastroparesis, DM, CAD who presented with n/ v and lower abd pain that started yesterday. Denies blood in stool or emesis, diarrhea, dysphagia, fever, sick contacts. he has lost 30lbs in the last 8-9 mos. Has decreased appetite. Had EGD [address] lewis, cannot recall findings. Had colonoscopy [address] Albrecht, no abnormal findings per pt's . He had GES in 2016 which showed mild prolonged emptying with good response to reglan. He regularly uses marijauna for his appetite and nausea. He has not had it in 3 days and cites this as the cause of his symptoms. History obtained from pts , pt noncontributory. PFSH Past Medical History AICD DM CHF gastroparesis CAD Past Surgical History Appendectomy AICD insertion cholesytectomy repair inguinal hernia T&A Coded Allergies: No Known Allergies (Verified , 11/15/16) Family History heart dz DM Social History no ETOH or tobacco use frequent user marijuana Review of Systems Constitutional: COMPLAINS OF: Weight loss, DENIES: Fever Gastrointestinal: COMPLAINS OF: Abdominal pain, Nausea, Vomiting, DENIES: Diarrhea, Hematemesis ROS pt otherwise noncontributory GI Exam Vitals I&O Vital Signs Date Time Temp Pulse Resp B/P (MAP) Pulse Ox O2 Delivery O2 Flow Rate FiO2 11/15/16 16:03 73 11/15/16 15:10 67 11/15/16 15:00 98.3 87 16 176/94 (121) 99 11/15/16 14:03 69 11/15/16 13:02 77 11/15/16 12:30 97.6 68 16 157/87 (110) 97 11/15/16 09:05 98.0 65 18 168/85 (112) 100 11/15/16 08:38 97.8 64 17 168/82 (110) 98 11/15/16 07:05 17 98 Room Air 11/15/16 07:05 97.8 64 17 180/81 (114) 98 Room Air 11/15/16 07:05 17 11/15/16 07:05 99 Room Air 11/15/16 07:05 64 17 98 Room Air 11/15/16 05:00 100 Nasal Cannula 4.00 11/15/16 05:00 100 4.00 11/15/16 04:59 99 Nasal Cannula 2.00 11/15/16 04:58 100 Nasal Cannula 2.00 11/15/16 04:43 62 16 199/96 (130) 99 11/15/16 04:41 154 26 188/102 (130) 94 Room Air I/O 11/14/16 11/14/16 11/14/16 11/15/16 11/15/16 11/15/16 07:00 15:00 23:00 07:00 15:00 23:00 Intake Total 1000 ml Balance 1000 ml Intake IV Total 1000 ml # Voids 1 # Bowel Movements 1 Imaging Last Impressions Abdomen/Pelvis CT 11/15/16 05 Signed Impressions: Service Date/Time: Tuesday, November 15, 2016 05:45 - CONCLUSION: Question mild colitis. Otherwise stable nonacute exam appearance Richard Randall MD Chest X-Ray 11/15/16 0450 Signed Impressions: Service Date/Time: Tuesday, November 15, 2016 04:57 - CONCLUSION: No acute disease Richard Randall MD Laboratory Test 11/15/16 04:50 11/15/16 04:58 11/15/16 05:29 White Blood Count 19.7 TH/MM3 Red Blood Count 5.03 MIL/MM3 Hemoglobin 16.2 GM/DL Hematocrit 47.4 % Mean Corpuscular Volume 94.3 FL Mean Corpuscular Hemoglobin 32.3 PG Mean Corpuscular Hemoglobin Concent 34.2 % Red Cell Distribution Width 13.2 % Platelet Count 425 TH/MM3 Mean Platelet Volume 8.1 FL Neutrophils (%) (Auto) 51.5 % Lymphocytes (%) (Auto) 37.7 % Monocytes (%) (Auto) 9.5 % Eosinophils (%) (Auto) 0.8 % Basophils (%) (Auto) 0.5 % Neutrophils # (Auto) 10.2 TH/MM3 Lymphocytes # (Auto) 7.4 TH/MM3 Monocytes # (Auto) 1.9 TH/MM3 Eosinophils # (Auto) 0.2 TH/MM3 Basophils # (Auto) 0.1 TH/MM3 CBC Comment AUTO DIFF Differential Total Cells Counted 100 Neutrophils % (Manual) 55 % Lymphocytes % 39 % Monocytes % 5 % Eosinophils % 1 % Neutrophils # (Manual) 10.8 TH/MM3 Differential Comment FINAL DIFF MANUAL Atypical Lymphocytes % Platelet Estimate NORMAL Platelet Morphology Comment NORMAL Red Cell Morphology Comment NORMAL Prothrombin Time 10.8 SEC Prothromb Time International Ratio 1.0 RATIO Activated Partial Thromboplast Time 21.4 SEC B-Type Natriuretic Peptide 39 PG/ML Bedside Hemoglobin 16.7 G/DL Bedside Hematocrit 49.0 % Bedside Sodium 138 MMOL/L Bedside Potassium 4.6 MMOL/L Bedside Chloride 105 MMOL/L Bedside Blood Urea Nitrogen 21 MG/DL Bedside Creatinine 1.1 MG/DL Bedside Glucose 291 MG/DL Calcium Level 9.9 MG/DL Magnesium Level 1.9 MG/DL Total Bilirubin 0.7 MG/DL Direct Bilirubin 0.1 MG/DL Indirect Bilirubin 0.6 MG/DL Aspartate Amino Transf (AST/SGOT) 24 U/L Alanine Aminotransferase (ALT/SGPT) 27 U/L Alkaline Phosphatase 91 U/L Total Creatine Kinase 106 U/L Creatine Kinase MB 1.7 NG/ML Troponin I LESS THAN 0.02 NG/ML Total Protein 8.5 GM/DL Albumin 4.6 GM/DL Lipase 239 U/L Venous Blood pH 7.33 Physical Examination HEENT: PERRL atraumatic; no jaundice. CHEST: diminished CARDIAC: RRR ABDOMEN: Soft, nondistended, nontender; no hepatosplenomegaly; bowel sounds are present in all four quadrants. EXTREMITIES: No clubbing, cyanosis, or edema. SKIN: Normal; no rash; no jaundice. [employer]: alert Assessment and Plan Plan ASSESSMENT - n/v/ lower abd pain, decreased appetite - gastroparesis vs gastroenteritis vs cannabis induced hyperemesis. per GES mild gastroparesis amenable to reglan. colonoscopy 2m ago and normal per pt. CT showing poss colitis PLAN - EGD tomorrow - NPO after midnight - obtain consent - continue reglan - supportive care This pt seen by myself and Dr Lewis and this note is written on his behalf Cadence Baptiste Nov 15, 2016 5:24 pm
[2016-11-15] MEDS: INSULIN DETEMIR 100 UNITS/ML VIAL SQ SCH (21:00)
[2016-11-15] MEDS: ATORVASTATIN 80 MG TAB PO SCH (21:42)
[2016-11-16] VITALS (18 sets, daily range): BP systolic 126–151; BP diastolic 70–81; PULSE 58–96; RESP 16–18; TEMP 98.7–99.2; O2SAT 98–99
[2016-11-16] MEDS: METOCLOPRAMIDE HCL 10 MG/2 ML VIAL IV PUSH SCH ×2 (00:52→09:09)
[2016-11-16] MEDS: SODIUM CHLOR 0.9% 1000 ML INJ 1,000 ML IV SCH ×3 (00:52→22:13)
[2016-11-16] MEDS: ONDANSETRON HCL 4 MG/2 ML VIAL IVP PRN (05:04)
[2016-11-16] MEDS: INSULIN ASPART SUPPLEMENTAL SCALE SQ SCH ×4 (08:00→21:00)
[2016-11-16 08:32] LABS: BASOPHIL % 0.1 % (0.0-2.0); EOSINOPHIL % 0.1 % (0.0-4.0); HEMATOCRIT 38.6 % (39.0-51.0); HEMO FLAGS DIFF FINAL; LYMPH % 16.5 % (9.0-44.0); LYMPHOCYTE # 3.4 TH/MM3 (1.0-4.8); MEAN CELL VOLUME 94.4 FL (80.0-100.0); MEAN CORPUSCULAR HEMOGLOBIN 31.9 PG (27.0-34.0); MEAN CORPUSCULAR HGB CONC 33.8 % (32.0-36.0); MONO % 9.7 % (0.0-8.0); NEUT % 73.6 % (16.0-70.0); PLATELET COUNT 337 TH/MM3 (150-450); RED BLOOD COUNT 4.08 MIL/MM3 (4.50-5.90); WHITE BLOOD COUNT 20.3 TH/MM3 (4.0-11.0)
[2016-11-16] MEDS: SODIUM CHLORIDE 0.9% FLUSH 10 ML FLUSH IV FLUSH SCH ×2 (09:00→20:43)
[2016-11-16] MEDS ORDERED: INFLUENZA VIRUS VACCINE (QUADRIVALENT) 0.5 ML SYR IM ONE (09:00)
[2016-11-16 09:05] LABS: ALKALINE PHOSPHATASE 74 U/L (45-117); ALT (GPT) 24 U/L (12-78); ANION GAP 11 MEQ/L (5-15); AST (GOT) 20 U/L (15-37); BICARBONATE 19.8 MEQ/L (21.0-32.0); BLOOD UREA NITROGEN 15 MG/DL (7-18); CHLORIDE 104 MEQ/L (98-107); GLOMERULAR FILTRATION RATE 108 ML/MIN (>89); POTASSIUM 3.7 MEQ/L (3.5-5.1); SODIUM (NA) 135 MEQ/L (136-145); TOTAL BILIRUBIN ADULT 0.6 MG/DL (0.2-1.0)
[2016-11-16] MEDS: ASPIRIN 81 MG CHEW TAB CHEW SCH (09:08)
[2016-11-16] MEDS: DOCUSATE SODIUM 50 MG/SENNA 8.6 MG TAB PO SCH ×2 (09:08→20:28)
[2016-11-16] MEDS: amLODIPine BESYLATE 5 MG TAB PO SCH (09:09)
[2016-11-16] MEDS: CARVEDILOL 12.5 MG TAB PO SCH ×2 (09:09→20:28)
[2016-11-16] MEDS: LISINOPRIL 10 MG TAB PO SCH (09:10)
--- NOTE | 2016-11-16 09:27 | PD.CARD.PN ---
Subjective Subjective Remarks No CV complaints Objective Medications Current Medications Medications (Trade) Dose Ordered Sig/Peter Route Start Time Stop Time Status Last Admin Nitroglycerin/ Dextrose 250 ml @ 3 mls/hr TITRATE PRN IV 11/15/16 05:00 (D50w (Vial) Inj) 50 ml UNSCH PRN IV PUSH 11/15/16 06:15 (Glucagon Inj) 1 mg UNSCH PRN OTHER 11/15/16 06:15 (NovoLOG SUPPLEMENTAL SCALE) 1 ACHS SLIDING SCALE SQ 11/15/16 08:00 11/15/16 21:41 Sodium Chloride 1,000 ml @ 100 mls/hr Q10H IV 11/15/16 06:13 11/16/16 00:52 (NS Flush) 2 ml UNSCH PRN IV FLUSH 11/15/16 06:15 (NS Flush) 2 ml BID IV FLUSH 11/15/16 09:00 11/15/16 21:42 (Tylenol) 650 mg Q4H PRN PO 11/15/16 06:15 (Zofran Inj) 4 mg Q6H PRN IVP 11/15/16 06:15 11/16/16 05:04 (Morphine Inj) 2 mg Q3H PRN IV PUSH 11/15/16 06:15 (Roxicodone) 5 mg Q4H PRN PO 11/15/16 06:15 (Yodit-Colace) 1 tab BID PO 11/15/16 09:00 11/16/16 09:08 (Milk Of Magnesia Liq) 30 ml Q12H PRN PO 11/15/16 06:15 (Senokot) 17.2 mg Q12H PRN PO 11/15/16 06:15 (Dulcolax Supp) 10 mg DAILY PRN RECTAL 11/15/16 06:15 (Lactulose Liq) 30 ml DAILY PRN PO 11/15/16 06:15 (Phenergan Inj) 25 mg Q4H PRN IM 11/15/16 06:15 (Reglan Inj) 10 mg Q8H IV PUSH 11/15/16 09:00 11/16/16 09:09 (Aspirin Chew) 81 mg DAILY CHEW 11/15/16 09:00 11/16/16 09:08 (Coreg) 12.5 mg BID PO 11/15/16 09:00 11/16/16 09:09 (Levemir Inj) 10 units HS SQ 11/15/16 21:00 (Prinivil) 10 mg DAILY PO 11/15/16 09:00 11/16/16 09:10 (Norvasc) 5 mg DAILY PO 11/15/16 14:00 11/16/16 09:09 (Lipitor) 80 mg HS PO 11/15/16 21:00 11/15/16 21:42 (Protonix Inj) 40 mg Q24H IV PUSH 11/15/16 17:00 11/15/16 16:55 (Apresoline Inj) 20 mg Q4H PRN IV PUSH 11/15/16 16:15 11/15/16 16:55 Vital Signs / I&O Vital Signs Date Time Temp Pulse Resp B/P (MAP) Pulse Ox O2 Delivery O2 Flow Rate FiO2 11/16/16 09:02 60 11/16/16 08:42 86 11/16/16 07:02 98.7 80 16 151/81 (104) 99 11/16/16 07:01 96 11/16/16 06:00 65 11/16/16 05:00 64 11/16/16 04:00 84 11/16/16 03:00 66 11/16/16 03:00 98.8 75 16 127/79 (95) 98 11/16/16 02:00 71 11/16/16 01:00 89 11/16/16 00:00 73 11/15/16 23:00 79 11/15/16 23:00 99.1 85 16 158/85 (109) 99 11/15/16 22:00 76 11/15/16 21:00 76 11/15/16 20:00 80 11/15/16 20:00 99.7 86 16 142/77 (98) 97 11/15/16 19:00 104 11/15/16 18:00 86 11/15/16 17:19 115 11/15/16 16:03 73 11/15/16 15:10 67 11/15/16 15:00 98.3 87 16 176/94 (121) 99 11/15/16 14:03 69 11/15/16 13:02 77 11/15/16 12:30 97.6 68 16 157/87 (110) 97 I/O 11/15/16 11/15/16 11/15/16 11/16/16 11/16/16 11/16/16 07:00 15:00 23:00 07:00 15:00 23:00 Intake Total 1000 ml 1030 ml 1369 ml Output Total 925 ml Balance 1000 ml 1030 ml 444 ml Intake Oral 120 ml 240 ml IV Total 1000 ml 910 ml 1129 ml Output Urine Total 925 ml # Voids 1 2 # Bowel Movements 1 0 0 Physical Exam Alert Chest clear CV S1S2 RRR no murmur Abs: BS+ No edema Laboratory Laboratory Tests Test 11/15/16 17:15 11/15/16 23:02 11/16/16 07:00 Troponin I 0.02 NG/ML 0.03 NG/ML White Blood Count 20.3 TH/MM3 Red Blood Count 4.08 MIL/MM3 Hemoglobin 13.0 GM/DL Hematocrit 38.6 % Mean Corpuscular Volume 94.4 FL Mean Corpuscular Hemoglobin 31.9 PG Mean Corpuscular Hemoglobin Concent 33.8 % Red Cell Distribution Width 13.0 % Platelet Count 337 TH/MM3 Mean Platelet Volume 8.1 FL Neutrophils (%) (Auto) 73.6 % Lymphocytes (%) (Auto) 16.5 % Monocytes (%) (Auto) 9.7 % Eosinophils (%) (Auto) 0.1 % Basophils (%) (Auto) 0.1 % Neutrophils # (Auto) 15.0 TH/MM3 Lymphocytes # (Auto) 3.4 TH/MM3 Monocytes # (Auto) 2.0 TH/MM3 Eosinophils # (Auto) 0.0 TH/MM3 Basophils # (Auto) 0.0 TH/MM3 CBC Comment DIFF FINAL Differential Comment Blood Urea Nitrogen 15 MG/DL Creatinine 0.76 MG/DL Random Glucose 200 MG/DL Total Protein 7.0 GM/DL Albumin 3.9 GM/DL Calcium Level 8.8 MG/DL Alkaline Phosphatase 74 U/L Aspartate Amino Transf (AST/SGOT) 20 U/L Alanine Aminotransferase (ALT/SGPT) 24 U/L Total Bilirubin 0.6 MG/DL Sodium Level 135 MEQ/L Potassium Level 3.7 MEQ/L Chloride Level 104 MEQ/L Carbon Dioxide Level 19.8 MEQ/L Anion Gap 11 MEQ/L Estimat Glomerular Filtration Rate 108 ML/MIN Imaging Last 48 hours Impressions Abdomen/Pelvis CT 11/15/16 0526 Signed Impressions: Service Date/Time: Tuesday, November 15, 2016 05:45 - CONCLUSION: Question mild colitis. Otherwise stable nonacute exam appearance Richard Randall MD Chest X-Ray 11/15/16 0450 Signed Impressions: Service Date/Time: Tuesday, November 15, 2016 04:57 - CONCLUSION: No acute disease Richard Randall MD Assessment and Plan Problem List: (1) Ischemic cardiomyopathy ICD Codes: I25.5 - Ischemic cardiomyopathy Plan: CHF compensated (2) CAD (coronary artery disease) ICD Codes: I25.10 - Atherosclerotic heart disease of [place] coronary artery without angina pectoris Status: Acute Plan: Stable (3) AICD (automatic cardioverter/defibrillator) present ICD Codes: Z95.810 - Presence of automatic (implantable) cardiac defibrillator Status: Acute Assessment and Plan I will follow prn - he does not have ACS. Arjun Solis MD Nov 16, 2016 09:27
--- NOTE | 2016-11-16 11:40 | GIPROC ---
[facility] [address] [facility]. [facility], [address] EGD PROCEDURE REPORT EXAM DATE: 11/16/2016 PATIENT NAME: Jai Peterson MR #: [id number] BIRTHDATE: 1965 ATTENDING: James Lewis MD ORDER #: [id number] REGIONAL LOSS PREVENTION MANAGER: Gabi Greer and Kerline Stephen STATUS: inpatient INDICATIONS: The patient is a 51 yr old male here for an EGD due to dyspepsia and vomiting PROCEDURE PERFORMED: EGD w/ biopsy MEDICATIONS: None and Per Anesthesia. TOPICAL ANESTHETIC: CONSENT: The patient understands the risks and benefits of the procedure and understands that these risks include, but are not limited to: sedation, allergic reaction, infection, perforation and/or bleeding. Alternative means of evaluation and treatment include, among others: physical exam, x-rays, and/or surgical intervention. The patient elects to proceed with this endoscopic procedure. medical equipment was checked for proper function. Hand hygiene and appropriate measures for infection prevention was taken. After the risks, benefits and alternatives of the procedure were thoroughly explained, Informed consent was verified, confirmed and timeout was successfully executed by the treatment team. The patient was anesthetized with topical anesthesia and the Think Upgradeax [id number] endoscope was introduced through the mouth and advanced to the second portion of the duodenum. Retroflexed views revealed a hiatal hernia The gastroscope was then slowly withdrawn and removed. ESOPHAGUS: The mucosa of the esophagus appeared normal. STOMACH: There was erythematous moderate gastritis in the gastric antrum. A biopsy was performed using cold forceps. Sample sent for histology. DUODENUM: The duodenal mucosa appeared normal in the bulb and second portion of the duodenum. ADVERSE EVENTS: There were no complications. IMPRESSIONS: 1. The esophagus appeared normal 2. There was erythematous gastritis in the gastric antrum; biopsy was performed 3. Normal duodenal mucosa in the bulb and second portion of the duodenum 4. Retroflexed views revealed a hiatal hernia RECOMMENDATIONS: 1. Await biopsy results. Biopsy results will not be ready for 7-10 days. If you don't hear from us in two weeks, call our office for biopsy results. 2. Anti-reflux regimen 3. Continue PPI PATIENT CONDITION: stable DISPOSITION: Inpatient REPEAT EXAM: Return 3 years EGD pending biopsy results James Lewis MD eSigned: James Lewis MD 11/16/2016 11:40 AM cc: PATIENT NAME: Jai Peterson Georgie MR#: [id number]
[2016-11-16] MEDS ORDERED: PROPOFOL 200 MG/20 ML AMP IV ONE (12:00)
[2016-11-16] MEDS ORDERED: LIDOCAINE HCL 1% PF 5 ML AMPULE OTHER ONE (12:00)
--- NOTE | 2016-11-16 13:20 | HHI.PR ---
Subjective Remarks Follow-up for gastroparesis, nausea and vomiting. Patient is currently doing well. He had one small episode of vomiting but no further nausea or vomiting. Doing much better compared to yesterday. He continues to have abdominal pain. Objective Vitals Vital Signs Date Time Temp Pulse Resp B/P (MAP) Pulse Ox O2 Delivery O2 Flow Rate FiO2 11/16/16 12:40 62 11/16/16 12:07 79 18 137/78 (97) 99 11/16/16 11:51 98.4 74 18 119/67 (84) 98 11/16/16 10:34 58 11/16/16 09:02 60 11/16/16 08:42 86 11/16/16 07:02 98.7 80 16 151/81 (104) 99 11/16/16 07:01 96 11/16/16 06:00 65 11/16/16 05:00 64 11/16/16 04:00 84 11/16/16 03:00 66 11/16/16 03:00 98.8 75 16 127/79 (95) 98 11/16/16 02:00 71 11/16/16 01:00 89 11/16/16 00:00 73 11/15/16 23:00 79 11/15/16 23:00 99.1 85 16 158/85 (109) 99 11/15/16 22:00 76 11/15/16 21:00 76 11/15/16 20:00 80 11/15/16 20:00 99.7 86 16 142/77 (98) 97 11/15/16 19:00 104 11/15/16 18:00 86 11/15/16 17:19 115 11/15/16 16:03 73 11/15/16 15:10 67 11/15/16 15:00 98.3 87 16 176/94 (121) 99 11/15/16 14:03 69 I/O 11/15/16 11/15/16 11/15/16 11/16/16 11/16/16 11/16/16 07:00 15:00 23:00 07:00 15:00 23:00 Intake Total 1000 ml 1030 ml 1369 ml 100 ml Output Total 925 ml Balance 1000 ml 1030 ml 444 ml 100 ml Intake Oral 120 ml 240 ml IV Total 1000 ml 910 ml 1129 ml Other 100 ml Output Urine Total 925 ml # Voids 1 2 # Bowel Movements 1 0 0 Result Diagram: 11/16/16 0711/16/16699 Imaging Last Impressions Abdomen/Pelvis CT 11/15/16525 Signed Impressions: Service Date/Time: Tuesday, November 15, 2016 05:45 - CONCLUSION: Question mild colitis. Otherwise stable nonacute exam appearance Richard Randall MD Chest X-Ray 11/15/16 045 Signed Impressions: Service Date/Time: Tuesday, November 15, 2016 04:57 - CONCLUSION: No acute disease Richard Randall MD Objective Remarks GENERAL: Alert, oriented 3, NAD. SKIN: Warm and dry. HEAD: Normocephalic. EYES: No scleral icterus. No injection or drainage. NECK: Supple, trachea midline. No JVD or lymphadenopathy. CARDIOVASCULAR: Regular rate and rhythm without murmurs, gallops, or rubs. RESPIRATORY: Breath sounds equal bilaterally. No accessory muscle use. GASTROINTESTINAL: Abdomen soft, tender to palpation, nondistended. No guarding MUSCULOSKELETAL: No cyanosis, or edema. BACK: Nontender without obvious deformity. No CVA tenderness. Procedures 11/16/2016 EGD IMPRESSIONS: 1. The esophagus appeared normal 2. There was erythematous gastritis in the gastric antrum; biopsy was performed 3. Normal duodenal mucosa in the bulb and second portion of the duodenum 4. Retroflexed views revealed a hiatal hernia A/P Problem List: (1) Gastroparesis ICD Code: K31.84 - Gastroparesis Status: Acute (2) Diabetes mellitus ICD Code: E11.9 - Type 2 diabetes mellitus without complications (3) CAD (coronary artery disease) ICD Code: I25.10 - Atherosclerotic heart disease of [place] coronary artery without angina pectoris Status: Acute Assessment and Plan Mr. Peterson is a 51 year old male with a history of ischemic cardiomyopathy, CAD, Diabetes mellitus, gastroparesis who presented to the hospital due to abdominal, intractable nausea, vomiting. Although initial EKG was indicative of STEMI, subsequent EKG did not show ST elevation and also patient did not have any chest pain. - Acute exacerbation of Gastroparesis - Intractable nausea, vomiting, abdominal pain - GI consulted - underwent EGD today. Erythematous gastritis in the gastric antrum. Esophagus normal. - Currently on heart healthy diet - Currently Reglan 10mg IV Q8hrs. Will switch to PO. - Morphine for pain. - Continue PPI - switch to PO. - Hypertension - CAD s/p stent placement in 2004 - Ischemic cardiomyopathy s/p AICD placement - Continue Aspirin 81mg Qday, Amlodipine 5mg Qday, Carvedilol 12.5mg BID, Lisinopril 10mg Qday - Continue Lipitor 80mg QHS - Diabetes mellitus - Continue Levemir 10 units QHS, sliding scale insulin. Full code. SCDs. Discharge plan: If patient tolerates diet and continues to improve symptoms of nausea and vomiting, patient can likely be discharged in the morning. Waldemar Bolanos DO Nov 16, 2016 1:20 pm
[2016-11-16] MEDS: PANTOPRAZOLE SOD 40 MG DELAYED RELEASE TAB PO SCH (18:21)
[2016-11-16] MEDS: METOCLOPRAMIDE HCL 10 MG TAB PO SCH ×2 (18:21→20:28)
[2016-11-16] MEDS: ATORVASTATIN 80 MG TAB PO SCH (20:42)
[2016-11-16] MEDS: INSULIN DETEMIR 100 UNITS/ML VIAL SQ SCH (21:00)
[2016-11-17] VITALS: BP_SYST 178; BP_DIAS 86; BP_DIAS 92; PULSE 77; RESP 20; TEMP 99; O2SAT 97
[2016-11-17 04:00] VITALS: BP 157/75; PULSE 76; RESP 20; TEMP 98.9; O2SAT 96
[2016-11-17 04:47] VITALS: BP 169/84; PULSE 65
[2016-11-17] MEDS ORDERED: ENALAPRILAT 2.5 MG/2 ML VIAL IV PUSH PRN (05:15)
[2016-11-17] MEDS ORDERED: cloNIDine HCL 0.1 MG TAB PO ONE (05:30)
[2016-11-17 08:00] VITALS: BP 144/77; PULSE 63; RESP 18; TEMP 98.5; O2SAT 98
[2016-11-17] MEDS: INSULIN ASPART SUPPLEMENTAL SCALE SQ SCH ×3 (09:30→17:15)
[2016-11-17] MEDS: PANTOPRAZOLE SOD 40 MG DELAYED RELEASE TAB PO SCH (09:32)
[2016-11-17] MEDS: CARVEDILOL 12.5 MG TAB PO SCH (09:32)
[2016-11-17] MEDS: METOCLOPRAMIDE HCL 10 MG TAB PO SCH ×3 (09:32→17:14)
[2016-11-17] MEDS: LISINOPRIL 10 MG TAB PO SCH (09:32)
[2016-11-17] MEDS: DOCUSATE SODIUM 50 MG/SENNA 8.6 MG TAB PO SCH (09:33)
[2016-11-17] MEDS: ASPIRIN 81 MG CHEW TAB CHEW SCH (09:33)
[2016-11-17] MEDS: SODIUM CHLORIDE 0.9% FLUSH 10 ML FLUSH IV FLUSH SCH (09:33)
[2016-11-17] MEDS: amLODIPine BESYLATE 5 MG TAB PO SCH (09:33)
[2016-11-17 12:00] VITALS: BP 162/81; PULSE 63; RESP 16; TEMP 98.6; O2SAT 97
[2016-11-17 13:55] LABS: AUTOMATED NEUTROPHIL # 10.7 TH/MM3 (1.8-7.7); BASOPHIL # 0.1 TH/MM3 (0-0.2); BASOPHIL % 0.5 % (0.0-2.0); EOSINOPHIL % 0.2 % (0.0-4.0); HEMATOCRIT 39.3 % (39.0-51.0); HEMO FLAGS DIFF FINAL; LYMPH % 25.3 % (9.0-44.0); LYMPHOCYTE # 4.2 TH/MM3 (1.0-4.8); MEAN CORPUSCULAR HEMOGLOBIN 31.9 PG (27.0-34.0); MEAN CORPUSCULAR HGB CONC 34.3 % (32.0-36.0); MONO % 10.1 % (0.0-8.0); NEUT % 63.9 % (16.0-70.0); PLATELET COUNT 298 TH/MM3 (150-450); RED BLOOD COUNT 4.23 MIL/MM3 (4.50-5.90); RED CELL DISTRIBUTION WIDTH 13.1 % (11.6-17.2); WHITE BLOOD COUNT 16.8 TH/MM3 (4.0-11.0)
[2016-11-17 14:02] LABS: POTASSIUM 3.7 MEQ/L (3.5-5.1)
[2016-11-17 16:00] VITALS: BP 147/79; PULSE 80; RESP 19; TEMP 99.3; O2SAT 97
--- NOTE | 2016-11-17 16:01 | HHI.GIFU ---
Subjective Remarks Pt resting in bed, napping. "I just want to go home." Tolerating diet, no n/v or pain. (Cadence Baptiste) Objective Vitals I&O Vital Signs Date Time Temp Pulse Resp B/P (MAP) Pulse Ox O2 Delivery O2 Flow Rate FiO2 11/17/16 12:00 98.6 63 16 162/81 (108) 97 11/17/16 08:00 98.5 63 18 144/77 (99) 98 11/17/16 04:47 65 169/84 (112) 11/17/16 04:00 98.9 76 20 157/75 (102) 96 11/17/16 00:00 99.0 77 20 178/86 (116) 97 178/92 (120) 11/16/16 18:01 74 11/16/16 17:00 78 I/O 11/16/16 11/16/16 11/16/16 11/17/16 11/17/16 11/17/16 06:59 14:59 22:59 06:59 14:59 22:59 Intake Total 1369 ml 100 ml 980 ml Output Total 925 ml 250 ml Balance 444 ml 100 ml 730 ml Intake Oral 240 ml 480 ml IV Total 1129 ml 500 ml Other 100 ml Output Urine Total 925 ml 250 ml # Voids 3 1 # Bowel Movements 0 0 Laboratory Laboratory Tests Test 11/17/16 13:30 White Blood Count 16.8 Red Blood Count 4.23 Hemoglobin 13.5 Hematocrit 39.3 Mean Corpuscular Volume 93.0 Mean Corpuscular Hemoglobin 31.9 Mean Corpuscular Hemoglobin Concent 34.3 Red Cell Distribution Width 13.1 Platelet Count 298 Mean Platelet Volume 8.6 Neutrophils (%) (Auto) 63.9 Lymphocytes (%) (Auto) 25.3 Monocytes (%) (Auto) 10.1 Eosinophils (%) (Auto) 0.2 Basophils (%) (Auto) 0.5 Neutrophils # (Auto) 10.7 Lymphocytes # (Auto) 4.2 Monocytes # (Auto) 1.7 Eosinophils # (Auto) 0.0 Basophils # (Auto) 0.1 CBC Comment DIFF FINAL Differential Comment Blood Urea Nitrogen 18 Creatinine 0.72 Random Glucose 238 Calcium Level 8.2 Sodium Level 134 Potassium Level 3.7 Chloride Level 101 Carbon Dioxide Level 23.0 Anion Gap 10 Estimat Glomerular Filtration Rate 115 Physical Exam HEENT: PERRL; normocephalic; atraumatic; no jaundice. CHEST: CTA CARDIAC: RRR ABDOMEN: Soft, nondistended, nontender; no hepatosplenomegaly; bowel sounds are present in all four quadrants. EXTREMITIES: No clubbing, cyanosis, or edema. SKIN: Normal; no rash; no jaundice. SOFTWARE DEVELOPER: No focal deficits; alert and oriented times three. (Cadence Baptiste) Assessment and Plan Plan ASSESSMENT - n/v/ lower abd pain, decreased appetite - gastroparesis vs gastroenteritis vs cannabis induced hyperemesis. per GES mild gastroparesis amenable to reglan. colonoscopy 2m ago and normal per pt. CT showing poss colitis. S/P EGD found erythematous gastritis, hiatal hernia. tolerating diet, doing better today. denies pain PLAN - PPI - low res diet - continue reglan - supportive care - ok for d/c from GI standpoint - f/u with GI in 2 weeks - await bx This pt seen by myself and Dr Lewis and this note is written on his behalf (Cadence Baptiste) Physician Comments Seen and examined with LALITHA, doing better after egd. Tolerating po diet. DC home with gi fu please. Thank you (James Lewis MD) Cadence Baptiste Nov 17, 2016 16:01 James Lewis MD Nov 17, 2016 16:51
[2016-11-17] MEDS ORDERED: ATOR1TAB18 PO (16:21)
[2016-11-17] MEDS ORDERED: AMLO5 PO (16:21)
--- NOTE | 2016-11-17 16:22 | HHI.DCPOC ---
Discharge Care Plan Diagnosis: (1) Gastroparesis (2) CAD (coronary artery disease) (3) Diabetes mellitus (4) Cardiomyopathy (5) Chest pain (6) Intractable nausea and vomiting Goals to Promote Your Health * To prevent worsening of your condition and complications * To maintain your health at the optimal level Directions to Meet Your Goals Take your medications as prescribed Follow your dietary instruction Follow activity as directed Keep your appointments as scheduled Take your immunizations and boosters as scheduled If your symptoms worsen call your PCP, if no PCP go to Urgent Care Center or Emergency Room Smoking is Dangerous to Your Health. Avoid second hand smoke Call the 24-hour hour crisis hotline for domestic abuse at Jim Aldana MD Nov 17, 2016 16:22
--- NOTE | 2016-11-17 16:23 | HHI.DS ---
Discharge Summary Admission Date Nov 15, 2016 at 06:21 Discharge Date: Nov 17, 2016 Admitting Diagnosis Intractable vomiting, ST changes, hyperglycemia (1) Gastroparesis ICD Code: K31.84 - Gastroparesis Status: Acute (2) Diabetes mellitus ICD Code: E11.9 - Type 2 diabetes mellitus without complications (3) CAD (coronary artery disease) ICD Code: I25.10 - Atherosclerotic heart disease of [place] coronary artery without angina pectoris Status: Acute Procedures 11/16/2016 EGD IMPRESSIONS: 1. The esophagus appeared normal 2. There was erythematous gastritis in the gastric antrum; biopsy was performed 3. Normal duodenal mucosa in the bulb and second portion of the duodenum 4. Retroflexed views revealed a hiatal hernia Brief History - From Admission Mr. Peterson is a 51 year old male with a history of diabetes mellitus, gastroparesis, CAD s/p stents who presented to the ED on 11/15/2016 due to intractable nausea, vomiting, abdominal pain that started on 11/13/2016. On Tuesday11/13/2016, he had some stomachache. However, this morning he started experiencing intractable nausea, vomiting. He was unable to keep anything down. No fever, chills. Denies changes in bowel or bladder habits. Upon arrival, EKG was suspicious for ST elevation, tachycardia. STEMI alert was initiated. A repeat EKG did not reveal ST elevation and subsequently STEMI alert was cancelled. CBC/BMP: 11/17/16 1330 11/17/16 1330 Significant Findings Laboratory Tests Test 11/15/16 04:50 11/15/16 04:58 11/15/16 05:29 11/15/16 17:15 White Blood Count 19.7 TH/MM3 (4.0-11.0) Monocytes (%) (Auto) 9.5 % (0.0-8.0) Neutrophils # (Auto) 10.2 TH/MM3 (1.8-7.7) Lymphocytes # (Auto) 7.4 TH/MM3 (1.0-4.8) Monocytes # (Auto) 1.9 TH/MM3 (0-0.9) Neutrophils # (Manual) 10.8 TH/MM3 (1.8-7.7) Activated Partial Thromboplast Time 21.4 SEC (24.3-30.1) Bedside Glucose 291 MG/DL (60-95) Troponin I LESS THAN 0.02 NG/ML Total Protein 8.5 GM/DL (6.4-8.2) Venous Blood pH 7.33 (7.360-7.400) Test 11/15/16 23:02 11/16/16 07:00 11/17/16 13:30 White Blood Count 20.3 TH/MM3 (4.0-11.0) 16.8 TH/MM3 (4.0-11.0) Red Blood Count 4.08 MIL/MM3 (4.50-5.90) 4.23 MIL/MM3 (4.50-5.90) Hematocrit 38.6 % (39.0-51.0) Neutrophils (%) (Auto) 73.6 % (16.0-70.0) Monocytes (%) (Auto) 9.7 % (0.0-8.0) 10.1 % (0.0-8.0) Neutrophils # (Auto) 15.0 TH/MM3 (1.8-7.7) 10.7 TH/MM3 (1.8-7.7) Monocytes # (Auto) 2.0 TH/MM3 (0-0.9) 1.7 TH/MM3 (0-0.9) Random Glucose 200 MG/DL (74-106) 238 MG/DL (74-106) Sodium Level 135 MEQ/L (136-145) 134 MEQ/L (136-145) Carbon Dioxide Level 19.8 MEQ/L (21.0-32.0) Calcium Level 8.2 MG/DL (8.5-10.1) Imaging Last Impressions Abdomen/Pelvis CT 11/15/16 4017 Signed Impressions: Service Date/Time: Tuesday, November 15, 2016 05:45 - CONCLUSION: Question mild colitis. Otherwise stable nonacute exam appearance Richard Randall MD Chest X-Ray 11/15/16 0759 Signed Impressions: Service Date/Time: Tuesday, November 15, 2016 04:57 - CONCLUSION: No acute disease Richard Randall MD PE at Discharge General: No acute distress. Heart: Regular rate and rhythm. No murmur. Lungs: Clear to auscultation bilaterally. No wheezes, rales, or rhonchi. Breathing is nonlabored. Abdomen: Soft, nontender, nondistended. Extremities: No lower extremity edema. Psych: Alert and oriented. Pt update on day of discharge Has no complaints today. Denies abdominal pain, nausea, vomiting. Wants to go home. Hospital Course Patient was admitted for further management of acute exacerbation of gastroparesis with intractable nausea, vomiting, and abdominal pain. Gastroenterology was consulted. Patient was continued on antibiotics and IV fluids. Morphine was given for pain control. Cardiology was consulted for evaluation of possible heart disease. Serial cardiac enzymes were negative. Patient was cleared by cardiology for endoscopy. EGD was done on 11/16/16. Patient's symptoms improved. He was cleared for discharge by gastroenterology. Pt Condition on Discharge: Stable Discharge Disposition: Discharge Home Discharge Time: > 30 minutes Discharge Instructions DIET: Follow Instructions for: Heart Healthy Diet Activities you can perform: Regular-No Restrictions Follow up Referrals: Gastroenterology - 2 Weeks with James Lewis MD PCP Follow-up - 1 Week New Medications: Amlodipine (Norvasc) 5 Mg Tab 5 MG PO DAILY for Blood Pressure Management, #30 TAB 0 Refills Atorvastatin (Atorvastatin) 80 Mg Tab 80 MG PO HS for Cholesterol Management, #30 TAB 0 Refills Continued Medications: Aspirin (Aspirin) 81 Mg Chew 81 MG CHEW DAILY, TAB 0 Refills Carvedilol (Carvedilol) 12.5 Mg Tab 12.5 MG PO BID, #60 TAB 0 Refills Dulaglutide Inj (Trulicity Inj) 0.75 Mg/0.5 Ml Pen 0.75 MG SQ Q7D for Blood Sugar Management, #4 PEN 0 Refills Gabapentin (Gabapentin) 300 Mg Cap 300 MG PO TID, #90 CAP 0 Refills Insulin Detemir Inj (Levemir Inj) 1,000 unit/ 10 ML Vial 10 UNITS SQ HS for Blood Sugar Management, VIAL 0 Refills Do not mix with any other Insulin. Insulin Lispro (Human) Inj (Humalog Inj) 1,000 Unit/10 Ml Vial 1-9 UNITS SQ ACHS for Blood Sugar Management, #1 VIAL 0 Refills Max dose at bedtime:( )units; sugars< 70,(0)units; sugars 150-199,(1)unit; sugars 200-249,(3)units; sugars 250-299,(5)units; sugars 300-349,(7)units; sugars more than 349,(9)units. Lisinopril (Lisinopril) 10 Mg Tab 10 MG PO DAILY, #30 TAB 0 Refills Metformin (Metformin) 500 Mg Tab 500 MG PO TIDPC for Blood Sugar Management, #90 TAB 0 Refills With meals Metoclopramide (Metoclopramide) 10 Mg Tab 10 MG PO QID, TAB 0 Refills Multiple Vitamins W/ Minerals (Multivitamin Adult) 1 Chw Chw Pantoprazole (Pantoprazole) 40 Mg Tab 40 MG PO DAILY for Reflux, #30 TAB 0 Refills Jim Aldana MD Nov 17, 2016 16:23
== END 2016-11-17 17:51 | disposition home or self-care (01) | DRG 74 ==
LOC: NEPC 04:35 → NEDA 06:21 → HCPC 08:51 → HCIN 12:22 → N05B 11-16 20:16
PROVIDERS: ADMIT Family Medicine; ATTEND Family Medicine
PROC: 0DB68ZX Excision of Stomach, Via Natural or Artificial Opening Endoscopic, Diagnostic (ICD-10-PCS; principal; 2016-11-16 12:00)
DX: E11.43 Type 2 diabetes mellitus with diabetic autonomic (poly)neuropathy (principal); K31.84 Gastroparesis; K29.70 Gastritis, unspecified, without bleeding; I10 Essential (primary) hypertension; I25.5 Ischemic cardiomyopathy; Z95.810 Presence of automatic (implantable) cardiac defibrillator; F12.90 Cannabis use, unspecified, uncomplicated; I25.10 Atherosclerotic heart disease of native coronary artery without angina pectoris; Z95.5 Presence of coronary angioplasty implant and graft; I25.2 Old myocardial infarction; Z87.891 Personal history of nicotine dependence; E78.5 Hyperlipidemia, unspecified; Z83.3 Family history of diabetes mellitus; Z79.82 Long term (current) use of aspirin; Z79.84 Long term (current) use of oral hypoglycemic drugs; Z79.4 Long term (current) use of insulin
CPT/HCPCS: 71010; 74177; 80048; 80053; 80076; 82310; 82435; 82550; 82552; 82565; 82800; 82947; 82948; 83690; 83735; 83880; 84132; 84295; 84484; 84520; 85007; 85025; 85027; 85610; 85730; 88305; 88312; 93005; 96361; 96374; 96375; C9113; J0360; J1815; J2405; J2550; J2765; J7030; Q9967

== ENCOUNTER 2017-07-10 05:20 | Observation (INO) | payer MEDICARE, OTHER ==
[~2017-07-10] VITALS: Ht 165.1 cm; Wt 59.0 kg
[2017-07-10] VITALS (7 sets, daily range): BP systolic 126–195; BP diastolic 72–97; PULSE 67–90; RESP 15–20; TEMP 97.6–98.1; O2SAT 96–99
[~2017-07-10 05:20] MED LIST changes: +AMLO5 PO; +ASPI-516 CHEW; -ASPI81CH CHEW; +ATOR80TA45 PO; -LEVA500T PO
[2017-07-10] MEDS ORDERED: ROSU1TAB6 PO (05:53)
[2017-07-10] MEDS ORDERED: VITA150T (05:53)
[2017-07-10] MEDS ORDERED: NO ITAB (05:53)
[2017-07-10] MEDS ORDERED: VITA1000 PO (05:53)
[2017-07-10] MEDS ORDERED: BUPR150T12 (05:53)
[2017-07-10] MEDS ORDERED: SODIUM CHLOR 0.9% 1000 ML INJ 1,000 ML IV SCH (06:57)
--- NOTE | 2017-07-10 06:59 | PD ---
HPI Chief Complaint: GI Complaint Time Seen by Provider: 06:57 Travel History International Travel<30 days: No Contact w/Intl Traveler<30days: No Traveled to known affect area: No History of Present Illness HPI 52-year-old male presents to the emergency department by private transportation the care of her spouse for complaint of intractable vomiting. Patient has history of diabetes with gastroparesis. Patient also has extensive history for CAD NV at age 39 AICD pacemaker diabetes hypertension dyslipidemia. Patient was recently seen in the urgent care for upper respiratory infection and was prescribed antibiotic but was unable to fill the prescription. Patient is started having ongoing nausea with intractable vomiting since 1 AM. Patient had no hematemesis or coffee-ground emesis patient's had discomfort in the abdomen associated with vomiting there is been no diarrhea or constipation. No well water ingestion foreign travel or dietary indiscretion. is has had similar symptoms but her symptoms have resolved. Patient also complained of sore throat and was going to be treated for pharyngitis as well. Patient rates his pain 6/10 intensity. No chest pain or shortness of breath. PFSH Past Medical History Narrative Medical CAD NV diabetes gastroparesis hypertension dyslipidemia CHF pacemaker defibrillator; cholecystectomy ;no tobacco use; nursing notes reviewed Arthritis: Yes (in hands) Asthma: No Autoimmune Disease: No Blood Disorders: No Heart Rhythm Problems: Yes Cancer: No Cardiovascular Problems: Yes High Cholesterol: Yes Chemotherapy: No Chest Pain: Yes Congestive Heart Failure: Yes COPD: No Diabetes: Yes Patient Takes Glucophage: Yes Diminished Hearing: No Endocrine: Yes Gastrointestinal Disorders: Yes (GASTRITIS, gastroparesis) GERD: Yes Genitourinary: No Hypertension: Yes Immune Disorder: No Implanted Vascular Access Dvce: Yes Musculoskeletal: Yes Neurologic: No Psychiatric: No Reproductive: No Respiratory: No Immunizations Current: Yes Myocardial Infarction: Yes (had pacemaker placed in 2006) Radiation Therapy: No Sleep Apnea: No Thyroid Disease: No Ulcer: Yes Past Surgical History Abdominal Surgery: Yes (APPENDECTOMY, CHOLECYSTECTOMY) AICD: Yes Appendectomy: Yes Body Medical Devices: PACEMAKER Cardiac Surgery: Yes (PACEMAKER DEFIB. CARDIAC STENTS) Cholecystectomy: Yes Ear Surgery: No Endocrine Surgery: No Eye Surgery: No Genitourinary Surgery: No Gynecologic Surgery: No Oral Surgery: Yes (ADNOIDECTOMY) Pacemaker: Yes (new battery last dec) Thoracic Surgery: No Tonsillectomy: Yes Other Surgery: Yes (GALL BLADDER, TONSILS, APPENDIX REMOVED) Social History Alcohol Use: No Tobacco Use: No Substance Use: Yes (marijuana for appetite and pain) Allergies-Medications (Allergen,Severity, Reaction): Coded Allergies: No Known Allergies (Verified Adverse Reaction, Unknown, 07/10/17) Reported Meds & Prescriptions Reported Meds & Active Scripts Active Reported Multiple Vitamin (Multivitamin with Minerals) 1 Each Tablet Vitamin D-1000 (Cholecalciferol) 1,000 Unit Tab 1,000 Units PO DAILY Super B Complex (Vitamin B Complex Vit C No.4) 150 Mg Tablet Rosuvastatin (Rosuvastatin Calcium) 10 Mg Tab 10 Mg PO HS Bupropion Sr 12 HR (Bupropion ER 12 HR (Smoking Deterrent)) 150 Mg Tab 150 Mg BID Take 1 tablet daily x 3 days then twice daily thereafter. Trulicity Inj (Dulaglutide Inj) 0.75 Mg/0.5 Ml Pen 0.75 Mg SQ Q7D Pantoprazole (Pantoprazole Sodium) 40 Mg Tab 40 Mg PO DAILY Multivitamin Adult (Multiple Vitamins W/ Minerals) 1 Chw Chw Metoclopramide (Metoclopramide HCl) 10 Mg Tab 10 Mg PO QID Metformin (Metformin HCl) 500 Mg Tab 500 Mg PO TIDPC With meals Lisinopril 10 Mg Tab 10 Mg PO DAILY Gabapentin 300 Mg Cap 300 Mg PO TID Carvedilol 12.5 Mg Tab 12.5 Mg PO BID Aspirin 81 Mg Chew 81 Mg CHEW DAILY Review of Systems Except as stated in HPI: all other systems reviewed are Neg Physical Exam Narrative GENERAL: Well-developed well-nourished ill-appearing male with diaphoresis resting in a left lateral decubitus position. SKIN: Warm and dry. HEAD: Normocephalic. EYES: No scleral icterus. No injection or drainage. NECK: Supple, trachea midline. No JVD or lymphadenopathy. CARDIOVASCULAR: Regular rate and rhythm without murmurs, gallops, or rubs. RESPIRATORY: Breath sounds equal bilaterally. No accessory muscle use. GASTROINTESTINAL: Abdomen soft, non-tender, nondistended. MUSCULOSKELETAL: No cyanosis, or edema. BACK: Nontender without obvious deformity. No CVA tenderness. Data Data Last Documented VS Vital Signs Date Time Temp Pulse Resp B/P (MAP) Pulse Ox O2 Delivery O2 Flow Rate FiO2 07/10/17 05:30 90 15 195/95 (128) 99 07/10/17 05:28 97.6 Orders Orders Complete Blood Count With Diff (07/10/17 06:57) Comprehensive Metabolic Panel (07/10/17 06:57) Lipase (07/10/17 06:57) Lactic Acid (07/10/17 06:57) Prothrombin Time / Inr (Pt) (07/10/17 06:57) Act Partial Throm Time (Ptt) (07/10/17 06:57) Urinalysis - C+S If Indicated (07/10/17 06:57) Iv Access Insert/Monitor (07/10/17 06:57) Ecg Monitoring (07/10/17 06:57) Oximetry (07/10/17 06:57) Pantoprazole Inj (Protonix Inj) (07/10/17 07:00) Sodium Chlor 0.9% 1000 Ml Inj (Ns 1000 M (07/10/17 06:57) Sodium Chloride 0.9% Flush (Ns Flush) (07/10/17 07:00) Electrocardiogram (07/10/17 06:57) Chest, Single Ap (07/10/17 06:57) Metoclopramide Inj (Reglan Inj) (07/10/17 07:00) Blood Glucose (07/10/17 06:59) Ct Abd/Pel W Iv Contrast(Rout) (07/10/17 ) Piperacil-Tazo 4.5 Gm Premix (Zosyn 4.5 (07/10/17 08:15) Troponin I (07/10/17 08:15) Labs Laboratory Tests Test 07/10/17 07:32 07/10/17 08:25 White Blood Count 22.5 TH/MM3 Red Blood Count 4.48 MIL/MM3 Hemoglobin 14.1 GM/DL Hematocrit 41.4 % Mean Corpuscular Volume 92.5 FL Mean Corpuscular Hemoglobin 31.4 PG Mean Corpuscular Hemoglobin Concent 34.0 % Red Cell Distribution Width 13.3 % Platelet Count 354 TH/MM3 Mean Platelet Volume 8.4 FL Neutrophils (%) (Auto) 78.4 % Lymphocytes (%) (Auto) 13.2 % Monocytes (%) (Auto) 7.0 % Eosinophils (%) (Auto) 1.0 % Basophils (%) (Auto) 0.4 % Neutrophils # (Auto) 17.7 TH/MM3 Lymphocytes # (Auto) 3.0 TH/MM3 Monocytes # (Auto) 1.6 TH/MM3 Eosinophils # (Auto) 0.2 TH/MM3 Basophils # (Auto) 0.1 TH/MM3 CBC Comment DIFF FINAL Differential Comment Prothrombin Time 10.0 SEC Prothromb Time International Ratio 1.0 RATIO Activated Partial Thromboplast Time 25.9 SEC Blood Urea Nitrogen 10 MG/DL Creatinine 1.06 MG/DL Random Glucose 236 MG/DL Total Protein 8.2 GM/DL Albumin 4.5 GM/DL Calcium Level 8.9 MG/DL Alkaline Phosphatase 104 U/L Aspartate Amino Transf (AST/SGOT) 57 U/L Alanine Aminotransferase (ALT/SGPT) 75 U/L Total Bilirubin 0.4 MG/DL Sodium Level 131 MEQ/L Potassium Level 4.2 MEQ/L Chloride Level 93 MEQ/L Carbon Dioxide Level 22.7 MEQ/L Anion Gap 15 MEQ/L Estimat Glomerular Filtration Rate 73 ML/MIN Troponin I LESS THAN 0.02 NG/ML Lipase 197 U/L [facility] Medical Decision Making Medical Screen Exam Complete: Yes Emergency Medical Condition: Yes Medical Record Reviewed: Yes Interpretation(s) EKG normal sinus rhythm rate 61 QRS septally age-indeterminate T-wave inversion with flattening c/w anterolateral ischemia trop: <0.02, not elevated Last Impressions Chest X-Ray 07/10/17 0657 Signed Impressions: CONCLUSION: Negative examination. CBC & BMP Diagram 07/10/17 07:32 Total Protein 8.2, Albumin 4.5, Calcium Level 8.9, Alkaline Phosphatase 104, Aspartate Amino Transf (AST/SGOT) 57 H, Alanine Aminotransferase (ALT/SGPT) 75, Total Bilirubin 0.4 Vital Signs Date Time Temp Pulse Resp B/P (MAP) Pulse Ox O2 Delivery O2 Flow Rate FiO2 07/10/17 05:30 90 15 195/95 (128) 99 07/10/17 05:28 97.6 80 16 185/79 (114) 99 Differential Diagnosis Vomiting, electrolyte disturbance, exacerbation gastroparesis abdominal pain uncontrolled diabetes viral illness sepsis dehydration Narrative Course Patient is placed on property assessment monitor IV access obtained patient administered liter of normal saline and bedside blood sugar assessed; patient given Reglan and kept n.p.o. Patient continues to complain of nausea receiving IV fluid white count is 22, 000 with left shift --most likely reflects hydration status as well as stress demargination and recent respiratory illness with abdominal pain for infectious etiology will cover presumptively with Zosyn and has had blood cultures obtained lactic acid is pending Chemistries pending Chemistries show serum glucose to be 236 BUN and creatinine are in normal range At 8:13 AM patient reports he is markedly improved denies any pain states nausea and vomiting have resolved receiving IV fluids and resting comfortably does not want any pain medication. Patient states he requires admission at least 2 times a year for exacerbation of his gastroparesis and vomiting episodes Examination patient's abdomen remains soft nontender no guarding no rebound positive bowel sounds patient continues to remain without any further nausea no further vomiting has received 1 L of normal saline tolerating well Patient's lactic acid, troponin I, and urinalysis remains pending; CT abdomen pelvis has been ordered but patient has very soft nontender belly chest x-ray reveals no infiltrate or pneumonia. 22 white cell count most likely reflective of stress demargination volume depletion and recent upper respiratory infection. Plan is to place patient in for observation for serial cardiac enzymes in view of nonspecific ischemic changes noted anterolaterally patient with pre-existing QRS septally. Patient continues to deny any chest pain or shortness of breath or referred neck jaw back shoulder arm pain. Patient is no longer diaphoretic and blood sugar is stable. Call is been placed [facility] service for admission/OBS. discussed with [facility] service --aware pending diagnostics Trop less than 0.02 , not elevated Physician Communication Physician Communication call placed to [facility] MD for OBS Diagnosis Primary Impression: Gastroparesis due to secondary diabetes Additional Impressions: Diabetes mellitus CAD (coronary artery disease) Admitting Information Admitting Physician Requests: Observation Blanca Hightower MD Jul 10, 2017 06:59
[2017-07-10] MEDS ORDERED: PANTOPRAZOLE SODIUM 40 MG VIAL IVP ONE (07:00)
[2017-07-10] MEDS ORDERED: METOCLOPRAMIDE HCL 10 MG/2 ML VIAL IV PUSH ONE (07:00)
[2017-07-10] MEDS ORDERED: SODIUM CHLORIDE 0.9% FLUSH 10 ML FLUSH IV FLUSH PRN (07:00)
--- NOTE | 2017-07-10 07:24 | RADRPT ---
EXAM DATE: 07/10/2017 7:19 AM EDT AGE/SEX: 52 years / Male INDICATIONS: Abdominal Pain, vomiting CLINICAL DATA: This is the patient's initial encounter. Patient reports that signs and symptoms have been present for 1 day and indicates a pain score of 7/10. MEDICAL/SURGICAL HISTORY: Cardiovascular disease. Pacemaker. COMPARISON: [facility] [place], CHEST SINGLE AP, 11/15/2016. . FINDINGS: A single AP view of the chest demonstrates the lungs to be symmetrically aerated without evidence of mass, infiltrate or effusion. Heart size is normal. Single lead AICD. Osseous structures are intact. CONCLUSION: Negative examination. Electronically signed by: Elaina Catherine MD 07/10/2017 7:23 AM EDT
[2017-07-10 07:41] LABS: AUTOMATED NEUTROPHIL # 17.7 TH/MM3 (1.8-7.7); BASOPHIL # 0.1 TH/MM3 (0-0.2); BASOPHIL % 0.4 % (0.0-2.0); EOSINOPHIL # 0.2 TH/MM3 (0-0.4); HEMATOCRIT 41.4 % (39.0-51.0); HEMOGLOBIN 14.1 GM/DL (13.0-17.0); LYMPH % 13.2 % (9.0-44.0); MEAN CELL VOLUME 92.5 FL (80.0-100.0); MEAN CORPUSCULAR HEMOGLOBIN 31.4 PG (27.0-34.0); MEAN PLATELET VOLUME 8.4 FL (7.0-11.0); MONOCYTE # 1.6 TH/MM3 (0-0.9); NEUT % 78.4 % (16.0-70.0); PLATELET COUNT 354 TH/MM3 (150-450); RED BLOOD COUNT 4.48 MIL/MM3 (4.50-5.90); RED CELL DISTRIBUTION WIDTH 13.3 % (11.6-17.2); WHITE BLOOD COUNT 22.5 TH/MM3 (4.0-11.0)
[2017-07-10 07:57] LABS: ALBUMIN 4.5 GM/DL (3.4-5.0); ALT (GPT) 75 U/L (12-78); AST (GOT) 57 U/L (15-37); BICARBONATE 22.7 MEQ/L (21.0-32.0); BLOOD UREA NITROGEN 10 MG/DL (7-18); CALCIUM 8.9 MG/DL (8.5-10.1); CHLORIDE 93 MEQ/L (98-107); CREATININE 1.06 MG/DL (0.60-1.30); GLOMERULAR FILTRATION RATE 73 ML/MIN (>89); GLUCOSE,RANDOM 236 MG/DL (74-106); SODIUM (NA) 131 MEQ/L (136-145)
[2017-07-10 08:04] LABS: ALKALINE PHOSPHATASE 104 U/L (45-117); TOTAL BILIRUBIN ADULT 0.4 MG/DL (0.2-1.0); TOTAL PROTEIN 8.2 GM/DL (6.4-8.2)
[2017-07-10] MEDS ORDERED: SODIUM CHLOR 0.9% 1000 ML INJ 1,000 ML IV ONE (08:15)
[2017-07-10] MEDS ORDERED: PIPERACIL-TAZO 4.5 GM PREMIX 100 ML IV ONE (08:15)
[2017-07-10] MEDS ORDERED: NALOXONE HCL 0.4 MG/ML AMP IV PUSH PRN (09:30)
[2017-07-10] MEDS ORDERED: SENNOSIDES 8.6 MG TAB PO PRN (09:30)
[2017-07-10] MEDS ORDERED: BISACODYL 10 MG SUPP RECTAL PRN (09:30)
[2017-07-10] MEDS ORDERED: MAGNESIUM HYDROXIDE SUSP 30 ML CUP PO PRN (09:30)
[2017-07-10] MEDS ORDERED: LACTULOSE SYRUP 20 GM/30 ML CUP PO PRN (09:30)
[2017-07-10] MEDS ORDERED: ACETAMINOPHEN 325 MG TAB PO PRN (09:30)
[2017-07-10] MEDS ORDERED: ONDANSETRON ODT 4 MG TAB PO PRN (09:30)
[2017-07-10] MEDS ORDERED: hydrALAZINE HCL 20 MG/ML VIAL IV PUSH ONE (11:30)
[2017-07-10] MEDS: SODIUM CHLOR 0.9% 1000 ML INJ 1,000 ML IV SCH ×2 (11:47→20:00)
[2017-07-10] MEDS ORDERED: ENALAPRILAT 1.25 MG/ML VIAL IV PUSH ONE (12:00)
[2017-07-10] MEDS: CARVEDILOL 12.5 MG TAB PO SCH ×2 (12:11→22:27)
[2017-07-10] MEDS: LISINOPRIL 10 MG TAB PO SCH (12:11)
[2017-07-10] MEDS ORDERED: METOCLOPRAMIDE HCL 10 MG TAB PO SCH (13:00)
[2017-07-10] MEDS: GABAPENTIN 300 MG CAP PO SCH ×2 (14:08→19:27)
--- NOTE | 2017-07-10 14:28 | HHI.HP ---
[facility] Service [place] [facility] Primary Care Physician Unknown Admission Diagnosis exacerbation gastroparesis; leukocytosis; h/o cad Diagnoses: (1) Leukocytosis (2) CAD (coronary artery disease) (3) Diabetes mellitus (4) Intractable nausea and vomiting (5) Gastroparesis Chief Complaint: Nausea/vomiting Travel History International Travel<30 Days: No Contact w/Intl Traveler <30 Da: No Traveled to Known Affected Are: No History of Present Illness The patient is a 52-year-old male with history of diabetes and gastroparesis. He presented to the emergency department with complaint of nausea and vomiting that had been worsening. He states that his and other coworkers had similar symptoms recently. He has not been able to keep down any food or drink. He reports mostly dry heaves. He had diarrhea yesterday. He reports subjective fever. Review of Systems Constitutional: COMPLAINS OF: Fever, DENIES: Chills, Night Sweats Eyes: DENIES: Blurred vision, Vision loss Ears, nose, mouth, throat: DENIES: Hearing loss Respiratory: DENIES: Cough, Wheezing, Sputum production, Shortness of breath Cardiovascular: DENIES: Chest pain, Palpitations, Dyspnea on Exertion, Lower Extremity Edema Gastrointestinal: COMPLAINS OF: Abdominal pain, Diarrhea, Nausea, Vomiting, DENIES: Constipation Genitourinary: DENIES: Urinary frequency, Urinary incontinence, Urgency, Hematuria, Dysuria, Nocturia Musculoskeletal: DENIES: Joint pain, Muscle aches Integumentary: DENIES: Pruritus, Rash Hematologic/lymphatic: DENIES: Bruising Neurologic: DENIES: Headache Past Family Social History Past Medical History Coronary artery disease Diabetes Gastroparesis Hyperlipidemia CHF Hypertension Past Surgical History Cholecystectomy Appendectomy Tonsillectomy/adenoidectomy AICD placement Cardiac catheterization with stent placement Reported Medications Multiple Vitamin (Multivitamin with Minerals) 1 Each Tablet Vitamin D-1000 (Cholecalciferol) 1,000 Unit Tab 1,000 Units PO DAILY Super B Complex (Vitamin B Complex Vit C No.4) 150 Mg Tablet Rosuvastatin (Rosuvastatin Calcium) 10 Mg Tab 10 Mg PO HS Bupropion Sr 12 HR (Bupropion ER 12 HR (Smoking Deterrent)) 150 Mg Tab 150 Mg BID Take 1 tablet daily x 3 days then twice daily thereafter. Trulicity Inj (Dulaglutide Inj) 0.75 Mg/0.5 Ml Pen 0.75 Mg SQ Q7D Pantoprazole (Pantoprazole Sodium) 40 Mg Tab 40 Mg PO DAILY Multivitamin Adult (Multiple Vitamins W/ Minerals) 1 Chw Chw Metoclopramide (Metoclopramide HCl) 10 Mg Tab 10 Mg PO QID Metformin (Metformin HCl) 500 Mg Tab 500 Mg PO TIDPC With meals Lisinopril 10 Mg Tab 10 Mg PO DAILY Gabapentin 300 Mg Cap 300 Mg PO TID Carvedilol 12.5 Mg Tab 12.5 Mg PO BID Aspirin 81 Mg Chew 81 Mg CHEW DAILY Allergies: Coded Allergies: No Known Allergies (Verified Allergy, Unknown, 07/10/17) Family History Diabetes, heart disease Social History Denies alcohol or tobacco use. Admits to marijuana use. Physical Exam Vital Signs Vital Signs Date Time Temp Pulse Resp B/P (MAP) Pulse Ox O2 Delivery O2 Flow Rate FiO2 07/10/17 12:10 98.1 78 20 182/72 (108) 96 07/10/17 10:00 67 07/10/17 09:44 71 190/97 (128) 07/10/17 08:10 80 16 126/76 (93) 98 07/10/17 05:30 90 15 195/95 (128) 99 07/10/17 05:28 97.6 80 16 185/79 (114) 99 Physical Exam GENERAL: Well-nourished, well-developed male in no acute distress. Appears uncomfortable. HEENT: Normocephalic, atraumatic. Pupils equal, round and reactive. Extraocular movements intact. No scleral icterus. No injection or drainage. Oropharynx is clear. Mucous membranes are moist. CARDIOVASCULAR: Regular rate and rhythm without murmurs, gallops, or rubs. RESPIRATORY: Clear to auscultation. No wheezes, rales, or rhonchi. Breathing is non-labored. GASTROINTESTINAL: Abdomen soft, non-tender, nondistended. EXTREMITIES: No lower extremity edema. No calf tenderness. PSYCH: Alert and oriented x 3. Laboratory Laboratory Tests Test 07/10/17 07:32 07/10/17 08:25 White Blood Count 22.5 Red Blood Count 4.48 Hemoglobin 14.1 Hematocrit 41.4 Mean Corpuscular Volume 92.5 Mean Corpuscular Hemoglobin 31.4 Mean Corpuscular Hemoglobin Concent 34.0 Red Cell Distribution Width 13.3 Platelet Count 354 Mean Platelet Volume 8.4 Neutrophils (%) (Auto) 78.4 Lymphocytes (%) (Auto) 13.2 Monocytes (%) (Auto) 7.0 Eosinophils (%) (Auto) 1.0 Basophils (%) (Auto) 0.4 Neutrophils # (Auto) 17.7 Lymphocytes # (Auto) 3.0 Monocytes # (Auto) 1.6 Eosinophils # (Auto) 0.2 Basophils # (Auto) 0.1 CBC Comment DIFF FINAL Differential Comment Prothrombin Time 10.0 Prothromb Time International Ratio 1.0 Activated Partial Thromboplast Time 25.9 Blood Urea Nitrogen 10 Creatinine 1.06 Random Glucose 236 Total Protein 8.2 Albumin 4.5 Calcium Level 8.9 Alkaline Phosphatase 104 Aspartate Amino Transf (AST/SGOT) 57 Alanine Aminotransferase (ALT/SGPT) 75 Total Bilirubin 0.4 Sodium Level 131 Potassium Level 4.2 Chloride Level 93 Carbon Dioxide Level 22.7 Anion Gap 15 Estimat Glomerular Filtration Rate 73 Troponin I LESS THAN 0.02 Lipase 197 Lactic Acid Level 1.7 Date/Time Source Procedure Growth Status 07/10/17 10:36 Blood Peripheral Aerobic Blood Culture Pending Received 07/10/17 10:36 Blood Peripheral Anaerobic Blood Culture Pending Received Result Diagram: 07/10/17 0732 07/10/17 0732 Imaging Last Impressions Chest X-Ray 07/10/17 0657 Signed Impressions: CONCLUSION: Negative examination. Caprini VTE Risk Assessment Caprini VTE Risk Assessment: No/Low Risk (score <= 1) Caprini Risk Assessment Model Point Value = 1 Point Value = 2 Point Value = 3 Point Value = 5 Age 41-60 Minor surgery BMI > 25 kg/m2 Swollen legs Varicose veins or History of unexplained or recurrent spontaneous Oral contraceptives or hormone replacement Sepsis (< 1 month) Serious lung disease, including pneumonia (< 1 month) Abnormal pulmonary function Acute myocardial infarction Congestive heart failure (< 1 month) History of inflammatory bowel disease Medical patient at bed rest Age 61-74 Arthroscopic surgery Major open surgery (> 45 min) Laparoscopic surgery (> 45 min) Malignancy Confined to bed (> 72 hours) Immobilizing plaster cast Central venous access Age >= 75 History of VTE Family history of VTE Factor V Leiden Prothrombin [id number] Lupus anticoagulant Anticardiolipin antibodies Elevated serum homocysteine Heparin-induced thrombocytopenia Other congenital or acquired thrombophilia Stroke (< 1 month) Elective arthroplasty Hip, pelvis, or leg fracture Acute spinal cord injury (< 1 month) Prophylaxis Regimen Total Risk Factor Score Risk Level Prophylaxis Regimen 0-1 Low Early ambulation 2 Moderate Order ONE of the following: *Sequential Compression Device (SCD) *Heparin 5000 units SQ BID 3-4 Higher Order ONE of the following medications: *Heparin 5000 units SQ TID *Enoxaparin/Lovenox 40 mg SQ daily (WT < 150 kg, CrCl > 30 mL/min) *Enoxaparin/Lovenox 30 mg SQ daily (WT < 150 kg, CrCl > 10-29 mL/min) *Enoxaparin/Lovenox 30 mg SQ BID (WT < 150 kg, CrCl > 30 mL/min) AND/OR *Sequential Compression Device (SCD) 5 or more Highest Order ONE of the following medications: *Heparin 5000 units SQ TID (Preferred with Epidurals) *Enoxaparin/Lovenox 40 mg SQ daily (WT < 150 kg, CrCl > 30 mL/min) *Enoxaparin/Lovenox 30 mg SQ daily (WT < 150 kg, CrCl > 10-29 mL/min) *Enoxaparin/Lovenox 30 mg SQ BID (WT < 150 kg, CrCl > 30 mL/min) AND *Sequential Compression Device (SCD) Assessment and Plan Assessment and Plan 1. Intractable nausea/vomiting: Likely gastroenteritis, possibly viral. Patient has history of gastroparesis. Continue antiemetics. Consult gastroenterology. Clear liquid diet as tolerated. Continue IV fluids. 2. Diabetes mellitus: Continue Levemir. Monitor Accu-Cheks and cover with sliding scale insulin. Hold metformin. Continue Trulicity. 3. Hypertension: Blood pressure is poorly controlled. Continue Coreg, lisinopril. Vasotec as needed. 4. Coronary artery disease: Asymptomatic. Continue aspirin, beta-wali, NOEMÍ inhibitor. Continue statin. 5. Ischemic cardiomyopathy: AICD in place. 6. DVT prophylaxis: SCDs, MOMO chapa. 7. Leukocytosis: Likely secondary to gastroenteritis. Monitor labs. Jim Aldana MD Jul 10, 2017 14:28
[2017-07-10] MEDS ORDERED: GLUCAGON 1 MG/ML VIAL OTHER PRN (14:30)
[2017-07-10] MEDS ORDERED: DEXTROSE 50% IN WATER 50 ML VIAL(D50) IV PUSH PRN (14:30)
--- NOTE | 2017-07-10 15:01 | EKG ---
Date Performed: 07/10/2017 Time Performed: 07:33:44 PTAGE: 52 years EKG: Sinus rhythm SEPTAL MYOCARDIAL INFARCTION MODERATE T-WAVE ABNORMALITY, CONSIDER ANTEROLATERAL ISCHEMIA ABNORMAL E CG PREVIOUS TRACING : 11/15/2016 05.07 Since previous tracing, the anterior T-wave changes are new . Clinical correlation is recommended. DOCTOR: Jai Glover Interpretating Date/Time 07/10/2017 15:01:06
--- NOTE | 2017-07-10 15:16 | PD.CONS ---
HPI History of Present Illness This is a 52 year old M with PMH significant for DM. gastroparesis, CAD, hyperlipidemia, CHF, and HTN who presented to the ER yesterday with complaints of nausea, vomiting, and abdominal pain. Pt states vomiting began on Tuesday. Denies hematemesis and coffee ground emesis. Associated fever and chills. Diarrhea this morning and yesterday, denies hematochezia and melena. Complaining of all over abdominal pain, constant, unable to describe. with similar symptoms, states she took Keflex and is now better. Pt with history of gastroparesis, currently not on medication for this, last seen in the GI office in December and advised to control BGL. EGD by our service in Nov 2016 --> The esophagus appeared normal. There was erythematous gastritis in the gastric antrum; biopsy was performed. Normal duodenal mucosa in the bulb and second portion of the duodenum. Retroflexed views revealed a hiatal hernia. Pt denies ETOH and nicotine use. Does report occasional marijuana use, does not recall last time. (Brittany Morgan) PFSH Past Medical History Coronary artery disease Diabetes Gastroparesis Hyperlipidemia CHF Hypertension Past Surgical History Cholecystectomy Appendectomy Tonsillectomy/adenoidectomy AICD placement Cardiac catheterization with stent placement EGD (Brittany Morgan) Coded Allergies: No Known Allergies (Verified Allergy, Unknown, 07/10/17) Family History Diabetes, heart disease Social History Denies alcohol or tobacco use. Admits to marijuana use. (Brittany Morgan) Review of Systems Gastrointestinal: COMPLAINS OF: Abdominal pain, Diarrhea, Nausea, Vomiting, DENIES: Black stools, Bloody stools, Constipation, Difficulty Swallowing, Odynophagia, Swelling of Abdomen, Heartburn, Hematemesis (Brittany Morgan) GI Exam Vitals I&O Vital Signs Date Time Temp Pulse Resp B/P (MAP) Pulse Ox O2 Delivery O2 Flow Rate FiO2 07/10/17 12:10 98.1 78 20 182/72 (108) 96 07/10/17 10:00 67 07/10/17 10:00 67 07/10/17 09:44 71 190/97 (128) 07/10/17 08:10 80 16 126/76 (93) 98 07/10/17 05:30 90 15 195/95 (128) 99 07/10/17 05:28 97.6 80 16 185/79 (114) 99 I/O 07/09/17 07/09/17 07/09/17 07/10/17 07/10/17 07/10/17 07:00 15:00 23:00 07:00 15:00 23:00 Intake Total 1000 ml Balance 1000 ml Intake IV Total 1000 ml Imaging Last Impressions Chest X-Ray 07/10/17 0657 Signed Impressions: CONCLUSION: Negative examination. Laboratory Test 07/10/17 07:32 07/10/17 08:25 White Blood Count 22.5 TH/MM3 Red Blood Count 4.48 MIL/MM3 Hemoglobin 14.1 GM/DL Hematocrit 41.4 % Mean Corpuscular Volume 92.5 FL Mean Corpuscular Hemoglobin 31.4 PG Mean Corpuscular Hemoglobin Concent 34.0 % Red Cell Distribution Width 13.3 % Platelet Count 354 TH/MM3 Mean Platelet Volume 8.4 FL Neutrophils (%) (Auto) 78.4 % Lymphocytes (%) (Auto) 13.2 % Monocytes (%) (Auto) 7.0 % Eosinophils (%) (Auto) 1.0 % Basophils (%) (Auto) 0.4 % Neutrophils # (Auto) 17.7 TH/MM3 Lymphocytes # (Auto) 3.0 TH/MM3 Monocytes # (Auto) 1.6 TH/MM3 Eosinophils # (Auto) 0.2 TH/MM3 Basophils # (Auto) 0.1 TH/MM3 CBC Comment DIFF FINAL Differential Comment Prothrombin Time 10.0 SEC Prothromb Time International Ratio 1.0 RATIO Activated Partial Thromboplast Time 25.9 SEC Blood Urea Nitrogen 10 MG/DL Creatinine 1.06 MG/DL Random Glucose 236 MG/DL Total Protein 8.2 GM/DL Albumin 4.5 GM/DL Calcium Level 8.9 MG/DL Alkaline Phosphatase 104 U/L Aspartate Amino Transf (AST/SGOT) 57 U/L Alanine Aminotransferase (ALT/SGPT) 75 U/L Total Bilirubin 0.4 MG/DL Sodium Level 131 MEQ/L Potassium Level 4.2 MEQ/L Chloride Level 93 MEQ/L Carbon Dioxide Level 22.7 MEQ/L Anion Gap 15 MEQ/L Estimat Glomerular Filtration Rate 73 ML/MIN Troponin I LESS THAN 0.02 NG/ML Lipase 197 U/L Lactic Acid Level 1.7 mmol/L Date/Time Source Procedure Growth Status 07/10/17 10:36 Blood Peripheral Aerobic Blood Culture Pending Received 07/10/17 10:36 Blood Peripheral Anaerobic Blood Culture Pending Received Physical Examination HEENT: Normocephalic; atraumatic CHEST: Even/unlabored CARDIAC: RRR ABDOMEN: Soft, nondistended, diffusely tender, bowel sounds active EXTREMITIES: No clubbing, cyanosis, or edema. SKIN: Normal; no rash; no jaundice. 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 (Brittany Morgan) Assessment and Plan Plan Assessment: - Intractable nausea and vomiting since Tuesday- associated fever and chills. with similar symptoms that began prior to his. Also having diarrhea since yesterday. History of gastroparesis, not currently on medication- seen by our service in the past- last office visit in December recommended control of BGL. GES Mar 2015 --> Mildly prolonged gastric emptying with excellent response to Reglan Pt admits to marijuana use but cant remember the last time. Plan: Symptomatic care Add Reglan Clear liquids CT abdomen/pelvis Stool for enteric pathogens Further recommendations based on clinical course Pt has been seen and examined by myself and Dr. Leblanc and this note is written on his behalf (Brittany Morgan) Physician Comments Seen with nasir Soto as above. Will follow up with you. Thank you for the consult. (Alice Leblanc MD) Brittany Morgan Jul 10, 2017 15:16 Alice Leblanc MD Jul 10, 2017 23:54
[2017-07-10] MEDS: INSULIN ASPART SUPPLEMENTAL SCALE SQ SCH ×2 (17:00→22:28)
[2017-07-10] MEDS ORDERED: IOHEXOL 350 MG/ML 10 ML VIAL (for RAD DIAG) IVCONTRAST ONE (17:20)
--- NOTE | 2017-07-10 17:45 | RADRPT ---
EXAM DATE: 07/10/2017 5:35 PM EDT AGE/SEX: 52 years / Male INDICATIONS: Abdominal pain with intractable vomiting. CLINICAL DATA: This is the patient's initial encounter. Patient reports that signs and symptoms have been present for 1 day and indicates a pain score of 3/10. MEDICAL/SURGICAL HISTORY: Hypertension. Gastritis Appendectomy. Cholecystectomy. CABG. Pace maker ORAL CONTRAST: No oral contrast ingested. RADIATION DOSE: 5.14 CTDI (mGy) COMPARISON: [facility] – [place], CT ABDOMEN & PELVIS W CONTRAST, 11/15/2016. [facility] – [place], CT ABDOMEN & PELVIS W CONTRAST , 05/16/2014. . TECHNIQUE: Multiple contiguous axial images were obtained through the abdomen and pelvis following b olus infusion of 91 ml Omnipaque 350 (iohexol) nonionic water-soluble contrast as a single exam dos e. No oral contrast ingested. Using automated exposure control and adjustment of the mA and/or kV ac cording to patient size, the radiation dose was kept as low as reasonably achievable to obtain optima l diagnostic quality images. FINDINGS: Lower Lungs: The visualized lower lungs are clear. Liver: The liver has a homogeneous density without space-occupying lesion. There is no dilation of th e biliary tree. Spleen: Homogeneous density without enlargement. Pancreas: Unremarkable without mass or calcification. Kidneys: Normal in size and shape. No evidence of mass or hydronephrosis. There is a 2.4 cm lower po le left renal cyst. Adrenal Glands: Unremarkable. Aorta: The aorta and proximal iliac vessels are grossly unremarkable without aneurysmal dilation. Bowel/Mesentery: Small hiatal hernia is noted. The bowel loops are grossly unremarkable. The cecum an d sigmoid colon have a normal configuration. Abdominal Wall: Intact. Retroperitoneum: No evidence of adenopathy in the retrocrural, para-aortic, or deep pelvic regions. Bladder: Contours are smooth. Reproductive Organs: No abnormal masses or calcifications seen. Inguinal: The inguinal region is unremarkable without evidence of adenopathy. Bony Structures: Degenerative changes are noted within the lower lumbar spine. CONCLUSION: 1. Small hiatal hernia. 2. 2.4 cm lower pole left renal cyst. 3. Degenerative changes throughout the lower lumbar spine. Electronically signed by: Jr Schultz MD 07/10/2017 5:44 PM EDT
[2017-07-10] MEDS: DOCUSATE SODIUM 50 MG/SENNA 8.6 MG TAB PO SCH (21:00)
[2017-07-10] MEDS ORDERED: ATORVASTATIN 20 MG TAB PO SCH (21:00)
[2017-07-10] MEDS: buPROPion HCL 150 MG SUSTAINED RELEASE TAB PO SCH (22:27)
[2017-07-10] MEDS: METOCLOPRAMIDE HCL 10 MG/2 ML VIAL IV PUSH SCH (22:28)
[2017-07-11 00:57] VITALS: BP 184/113; PULSE 75; RESP 16; TEMP 98.5; O2SAT 98
[2017-07-11] MEDS ORDERED: cloNIDine HCL 0.1 MG TAB PO ONE (01:45)
[2017-07-11 05:54] VITALS: BP 127/72; PULSE 108; RESP 14; TEMP 98.5; O2SAT 97
[2017-07-11 07:15] VITALS: PULSE 75
[2017-07-11 07:19] VITALS: PULSE 90; RESP 18; TEMP 98.5; O2SAT 95
[2017-07-11] MEDS: SODIUM CHLOR 0.9% 1000 ML INJ 1,000 ML IV SCH (07:46)
[2017-07-11] MEDS: METOCLOPRAMIDE HCL 10 MG/2 ML VIAL IV PUSH SCH (07:46)
[2017-07-11 08:11] VITALS: BP 91/51; PULSE 92; RESP 18; O2SAT 96
[2017-07-11] MEDS: CARVEDILOL 12.5 MG TAB PO SCH (08:22)
[2017-07-11] MEDS: LISINOPRIL 10 MG TAB PO SCH (08:22)
[2017-07-11] MEDS: GABAPENTIN 300 MG CAP PO SCH (08:35)
[2017-07-11] MEDS: DOCUSATE SODIUM 50 MG/SENNA 8.6 MG TAB PO SCH (08:35)
[2017-07-11] MEDS: buPROPion HCL 150 MG SUSTAINED RELEASE TAB PO SCH (08:35)
[2017-07-11] MEDS: INSULIN ASPART SUPPLEMENTAL SCALE SQ SCH ×2 (08:39→12:00)
[2017-07-11] MEDS ORDERED: PANTOPRAZOLE SOD 40 MG DELAYED RELEASE TAB PO SCH (09:00)
[2017-07-11] MEDS ORDERED: ASPIRIN 81 MG CHEW TAB CHEW SCH (09:00)
[2017-07-11] MEDS ORDERED: CHOLECALCIFEROL (VIT D3) 1000 UNIT TAB PO SCH (09:00)
--- NOTE | 2017-07-11 09:21 | HHI.PR ---
Subjective Remarks Follow up nausea/vomiting. The patient states that he feels much better today. He wants to go home. Nausea and vomiting have resolved. He states that he is hungry. Still with cough, nonproductive. Objective Vitals Vital Signs Date Time Temp Pulse Resp B/P (MAP) Pulse Ox O2 Delivery O2 Flow Rate FiO2 07/11/17 08:11 92 18 91/51 (64) 96 07/11/17 07:19 98.5 90 18 95 07/11/17 05:54 98.5 108 14 127/72 (90) 97 07/11/17 00:57 98.5 75 16 184/113 (136) 98 07/10/17 20:26 97.9 78 16 180/82 (114) 98 07/10/17 12:10 98.1 78 20 182/72 (108) 96 07/10/17 10:00 67 07/10/17 10:00 67 07/10/17 09:44 71 190/97 (128) I/O 07/10/17 07/10/17 07/10/17 07/11/17 07/11/17 07/11/17 07:00 15:00 23:00 07:00 15:00 23:00 Intake Total 1000 ml Output Total 700 ml Balance 1000 ml -700 ml Intake IV Total 1000 ml Output Urine Total 700 ml Result Diagram: 07/10/17 0732 07/10/17 0732 Imaging Last Impressions Chest X-Ray 07/10/17 0657 Signed Impressions: CONCLUSION: Negative examination. Abdomen/Pelvis CT 07/10/17 0000 Signed Impressions: CONCLUSION: 1. Small hiatal hernia. 2. 2.4 cm lower pole left renal cyst. 3. Degenerative changes throughout the lower lumbar spine. Objective Remarks General: No acute distress. Heart: Regular rate and rhythm. No murmur. Lungs: Clear to auscultation bilaterally. No wheezes, rales, or rhonchi. Breathing is nonlabored. Abdomen: Soft, nontender, nondistended. Extremities: No lower extremity edema. Psych: Alert and oriented. Neuro: Normal speech. No focal deficits noted. Procedures None Urinary Catheter: No Vascular Central Line Catheter: No A/P Problem List: (1) Leukocytosis ICD Code: D72.829 - Elevated white blood cell count, unspecified (2) CAD (coronary artery disease) ICD Code: I25.10 - Atherosclerotic heart disease of [place] coronary artery without angina pectoris Status: Acute (3) Diabetes mellitus ICD Code: E11.9 - Type 2 diabetes mellitus without complications (4) Intractable nausea and vomiting ICD Code: R11.2 - Uncontrollable nausea and vomiting Status: Acute (5) Gastroparesis ICD Code: K31.84 - Gastroparesis Status: Acute Assessment and Plan 1. Intractable nausea/vomiting: Symptoms have improved significantly. Likely gastroenteritis, possibly viral. Patient has history of gastroparesis. Continue antiemetics. Appreciate gastroenterology recommendations. Heart healthy, diabetic diet. Continue IV fluids. 2. Diabetes mellitus: Continue Levemir. Monitor Accu-Cheks and cover with sliding scale insulin. Hold metformin. Continue Trulicity. 3. Hypertension: Blood pressure was elevated overnight, but is now low. Continue Coreg, lisinopril. Vasotec as needed. 4. Coronary artery disease: Asymptomatic. Continue aspirin, beta-wali, NOEMÍ inhibitor. Continue statin. 5. Ischemic cardiomyopathy: AICD in place. 6. DVT prophylaxis: MOMO Barnes. 7. Leukocytosis: Likely secondary to gastroenteritis. Repeat labs are pending. Discharge Planning Possible discharge home today pending labs and if patient tolerates breakfast. Jim Aldana MD Jul 11, 2017 09:20
--- NOTE | 2017-07-11 09:23 | HHI.DCPOC ---
Discharge Care Plan Diagnosis: (1) Leukocytosis (2) Gastroparesis (3) Intractable nausea and vomiting (4) Diabetes mellitus Goals to Promote Your Health * To prevent worsening of your condition and complications * To maintain your health at the optimal level Directions to Meet Your Goals Take your medications as prescribed Follow your dietary instruction Follow activity as directed Keep your appointments as scheduled Take your immunizations and boosters as scheduled If your symptoms worsen call your PCP, if no PCP go to Urgent Care Center or Emergency Room Smoking is Dangerous to Your Health. Avoid second hand smoke Call the 24-hour hour crisis hotline for domestic abuse at Jim Aldana MD Jul 11, 2017 09:23
[2017-07-11] MEDS ORDERED: INFLUENZA VIRUS VACCINE (QUADRIVALENT) 0.5 ML SYR IM ONE (10:00)
[2017-07-11 11:00] LABS: AUTOMATED NEUTROPHIL # 8.7 TH/MM3 (1.8-7.7); BASOPHIL % 0.1 % (0.0-2.0); HEMATOCRIT 37.2 % (39.0-51.0); HEMOGLOBIN 12.9 GM/DL (13.0-17.0); LYMPH % 19.2 % (9.0-44.0); LYMPHOCYTE # 2.5 TH/MM3 (1.0-4.8); MEAN CELL VOLUME 91.3 FL (80.0-100.0); MEAN CORPUSCULAR HEMOGLOBIN 31.7 PG (27.0-34.0); MEAN CORPUSCULAR HGB CONC 34.7 % (32.0-36.0); MEAN PLATELET VOLUME 8.1 FL (7.0-11.0); MONO % 14.6 % (0.0-8.0); MONOCYTE # 1.9 TH/MM3 (0-0.9); NEUT % 66.1 % (16.0-70.0); PLATELET COUNT 325 TH/MM3 (150-450); RED BLOOD COUNT 4.08 MIL/MM3 (4.50-5.90); RED CELL DISTRIBUTION WIDTH 13.2 % (11.6-17.2); WHITE BLOOD COUNT 13.1 TH/MM3 (4.0-11.0)
[2017-07-11] MEDS ORDERED: PATIENT OWN MEDICATION SQ SCH (11:00)
[2017-07-11 11:05] VITALS: BP 93/52; PULSE 67; PULSE 89; RESP 20; TEMP 97.7; O2SAT 97
[2017-07-11 11:46] LABS: BICARBONATE 19.2 MEQ/L (21.0-32.0); CALCIUM 8.4 MG/DL (8.5-10.1); CREATININE 1.06 MG/DL (0.60-1.30)
== END 2017-07-11 12:24 | disposition home or self-care (01) ==
LOC: NEPC 05:20 → NEDA 09:22 → NEPGCP 10:08
PROVIDERS: ADMIT Family Medicine; ATTEND Family Medicine
DX: K52.9 Noninfective gastroenteritis and colitis, unspecified (principal); K31.84 Gastroparesis; E11.43 Type 2 diabetes mellitus with diabetic autonomic (poly)neuropathy; D72.829 Elevated white blood cell count, unspecified; I25.10 Atherosclerotic heart disease of native coronary artery without angina pectoris; I50.9 Heart failure, unspecified; I11.0 Hypertensive heart disease with heart failure; E78.5 Hyperlipidemia, unspecified; I25.5 Ischemic cardiomyopathy; R05 Cough; F12.90 Cannabis use, unspecified, uncomplicated; R07.9 Chest pain, unspecified; K44.9 Diaphragmatic hernia without obstruction or gangrene; Z95.810 Presence of automatic (implantable) cardiac defibrillator
CPT/HCPCS: 71045; 74177; 80048; 80053; 82948; 83605; 83690; 84484; 85025; 85610; 85730; 87040; 93005; 96361; 96365; 96372; 96375; 96376; 99285; C9113; G0378; J1815; J2543; J2765; J7030; Q9967

== ENCOUNTER 2017-12-23 04:11 | Inpatient (IN) ==
[2017-12-23] MEDS ORDERED: Morphine Inj 4 MG/ML Vial IV.PUSH ONE (04:40)
[2017-12-23] MEDS ORDERED: Sod Chloride 0.9% Inj 1,000 ML IV.SIG ONE (04:40)
--- NOTE | 2017-12-23 04:59 | ED ---
HPI General Chief complaint: Nausea/Vomiting/Diarrhea Stated complaint: Vomiting Time Seen by Provider: 12/23/17 04:40 Source: patient and family Mode of arrival: ambulatory Limitations: no limitations History of Present Illness MD complaint: Reports nausea, vomiting and abdominal pain Onset (ago): day(s) Description of Vomiting: watery Description of Diarrhea: none Associated Abdominal Pain: Yes Location of pain: Reports diffuse Radiation: diffuse Severity: similar to previous episodes Severity scale (1-10): 5 Quality: Reports cramping and aching Relieving factors: none Exacerbating factors: none Context: Reports other (History of diabetic gastroparesis); Denies foreign travel, possible food poisoning, sick contacts, recent antibiotic use, recent surgery/procedure, history of abdominal surgery, alcohol abuse, trauma, anticoagulant use, aspirin use, caffeine, self induced, smoking, CO exposure, new medication and marijuana use Associated symptoms: Reports nausea/vomiting and weakness; Denies myalgias, chest pain, cough, diaphoresis, fever/chills, headaches, loss of appetite, malaise, rash, dysuria, shortness of breath, syncope, decreased urine output, fecal incontinence, altered mental status, anxiety, fatigue, bloating, numbness , tinnitus, palpitation and change in vision Related Data Home Medications Medication Instructions Recorded Confirmed Vitamin D3 1,000 PO DAILY 12/23/17 aspirin 81 mg PO DAILY 12/23/17 12/23/17 bupropion HCl 150 mg PO BID 12/23/17 12/23/17 carvedilol 6.25 mg PO BID 12/23/17 12/23/17 dulaglutide [Trulicity] 0.75 mg SUBCUT QWEEK 12/23/17 12/23/17 gabapentin 300 mg PO TID 12/23/17 12/23/17 lisinopril 10 mg PO DAILY 12/23/17 12/23/17 metformin 500 mg PO TID 12/23/17 12/23/17 metoclopramide HCl 10 mg PO TID 12/23/17 12/23/17 multivitamin 1 tab PO DAILY 12/23/17 12/23/17 pantoprazole 40 mg PO DAILY 12/23/17 12/23/17 rosuvastatin 10 mg PO DAILY 12/23/17 12/23/17 vitamin B complex [B Complex 1] 1 PO DAILY 12/23/17 Allergies Allergy/AdvReac Type Severity Reaction Status Date / Time No Known Allergies Allergy Verified 12/23/17 04:15 Review of Systems ROS: all other systems reviewed are negative PMFSH Medical History Medical History Cholecystectomy planned (Acute) Diabetes type 2, controlled (Acute) Gastroparesis (Acute) Surgical History Surgical History History of appendectomy (Acute) History of hernia surgery (Acute) Social History Social History Substance History: Active Abuse Second Hand Smoke Exposure: No Smoking Status: Former smoker Tobacco Type: Cigarettes How Often Do You Have a Drink Containing Alcohol: Never Recent Travel in [facility] within the Last 8 Weeks: No Recent Out of Country Travel within the Last 8 Weeks: No Substance Abuse Detail Marijuana: Substance Use Status: Active Route Used Substance Abuse: Inhalation Reason for Use: Feels Good Immunization History Tetanus Immunization: Unsure Exam Narrative Exam Narrative: GENERAL: Well-nourished, well-developed patient. Mildly ill- appearing male in no respiratory distress SKIN: Focused skin assessment cool/dry. HEAD: Normocephalic. EYES: No scleral icterus. No injection or drainage. NECK: Supple, trachea midline. No JVD or lymphadenopathy. CARDIOVASCULAR: Regular rate and rhythm without murmurs, gallops, or rubs. RESPIRATORY: Breath sounds equal bilaterally. No accessory muscle use. GASTROINTESTINAL: Abdomen soft, diffusely tender to palpation without guarding or rebound, nondistended. MUSCULOSKELETAL: No cyanosis, or edema. BACK: Nontender without obvious deformity. No CVA tenderness. Course Reevaluation(s) Reevaluation #1: Is resting comfortably. First liter of fluids has been completed we are going to give him another liter of fluids. There is no more vomiting or nausea. Time: 07:00 Initial Documented Vital Signs Temperature 97.7 F 12/23/17 04:15 Pulse Rate 97 H 12/23/17 04:15 Respiratory Rate 16 12/23/17 04:15 Blood Pressure 166/79 H 12/23/17 04:15 Pulse Oximetry 97 12/23/17 04:15 Last Documented Vital Signs Temperature 97.7 F 12/23/17 04:15 Pulse Rate 78 12/23/17 08:33 Respiratory Rate 18 12/23/17 08:33 Blood Pressure 112/72 12/23/17 08:33 Pulse Oximetry 98 12/23/17 08:33 Sign Out Sign Out Data: Patient Sign Out occurred on 12/23/17 at 07:11. Patient's care was discussed, and care was transferred from Blanca Hightower MD to Kulwant Pittman DO. Sign Out Comment: diabetic gasroparesis severe dehydration pending CT and beta hydroxy -- possible OBS but feels well if studies negastive plan for DC care signed over to oncoming MD Dr Ann Last updated by Blanca Hightower MD at 12/23/17 07:01 Medical Decision Making MDM Narrative Medical decision making narrative: 52-year-old diabetic male type II with history of recurrent gastroparesis returns for intermittent abdominal pain nausea and vomiting over the past 2-1/2 days. Reportedly symptoms worsened this morning and presents now for further evaluation. Patient has not been monitoring his blood sugars. No hematemesis or coffee-ground emesis. No melena hematochezia. No fever. Patient denies chest pain or shortness of breath. IV access obtained specimens collections of resulting patient administered Zofran 4 mg IV along with a liter of normal saline bedside glucose obtained one-time dose of morphine 3mg. @ 0615 Identified to have bicarb of 17 with elevated anion gap; patient given additional fluids, additional labs ordered beta hydroxybutyric acid lactic acid and CT abdomen pelvis ordered in view of leukocytosis. Leukocytosis most likely reflects dehydration stress demargination and volume contracture however in view of diffuse abdominal pain will obtain CT to rule out any intra- abdominal process. Patient given additional liter of normal saline. Patient reports he feels markedly better. Patient was history of diabetic gastroparesis with multiple visits to the emergency department for same identified to be markedly dehydrated with leukocytosis mild left shift stable chemistries remarkable for bicarb of 17 and anion gap of 16 with blood sugar of 258 mild hyponatremia; ABG shows a pH of 7.35 minimally decreased with a bicarb of 22.6 and a base excess of only -2.2. CT imaging is pending and signed over to oncoming physician for follow-up of CT results as well as pending beta hydroxybutyric acid and lactic acid. Suspect patient most likely does not have DKA findings are consistent with patient's marked dehydration and poor oral dietary intake. Patient in DKA with a BHA of 1.27 and an anion Gap of 16, elevated WBC and lactic acidosis which is unlikely secondary to an infectious process. His magnesium was 1.3 replacement initiated in the ED. Patient's glucose dropped to below 200 and the patient was started on D5 normal saline. Findings discussed with admitting physician. We will repeat the BMP to see if the anion gap is closing therefore we can start the patient on subcu insulin versus IV. UA was negative for infectious process chest x-ray unremarkable patient is afebrile without any respiratory symptoms or URI symptoms. Medical Screen Exam Complete: Yes Emergency Medical Condition: Yes Differential Diagnosis Differential Diagnosis: Gastroparesis uncontrolled diabetes DKA electrolyte disturbance arrhythmia dehydration Medical Records Medical records reviewed: Yes I reviewed the patient's medical records. Lab Data Result diagrams: 12/23/17 05:00 12/23/17 05:00 Lab Results 12/23/17 12/23/17 12/23/17 Range/Units 05:00 05:00 06:20 WBC 17.5 H (4.0-11.0) th/mm3 RBC 4.47 L (4.50-5.90) mil/mm3 Hgb 14.9 (13.0-17.0) gm/dL Hct 42.6 (39.0-51.0) % MCV 95.3 (80.0-100.0) fL MCH 33.3 (27.0-34.0) pg MCHC 35.0 (32.0-36.0) % RDW 13.1 (11.6-17.2) % Plt Count 378 (150-450) th/mm3 MPV 7.7 (7.0-11.0) fL Neut % (Auto) 73.8 H (16.0-70.0) % Lymph % (Auto) 20.0 (9.0-44.0) % Mcintosh % (Auto) 4.9 (0.0-8.0) % Eos % (Auto) 0.9 (0.0-4.0) % Baso % (Auto) 0.4 (0.0-2.0) % Neut # (Auto) 12.9 H (1.8-7.7) th/mm3 Lymph # (Auto) 3.5 (1.0-4.8) th/mm3 Mcintosh # (Auto) 0.9 (0.0-0.9) th/mm3 Eos # (Auto) 0.2 (0.0-0.4) th/mm3 Baso # (Auto) 0.1 (0.0-0.2) th/mm3 WBC Differential . Differential Comment Auto diff final Puncture Site Rn jaycob from iv site Patient Temperature 98.6 VBG pH 7.35 L (7.360-7.400) VBG pCO2 42 L (44-48) mmHG VBG pO2 21 L* (35-40) mmHG VBG HCO3 23 (22-26) mmol/L VBG O2 Saturation 28 L (70-76) % VBG O2 Content 5.7 L (9.0-17.0) Vol % VBG Base Excess -2.2 L (-2-2) mmol/L VBG Carboxyhemoglobin 0.0 (0-4) % VBG Methemoglobin 0.5 (0-2) % Hemoglobin 14.3 (12.0-16.0) G/DL O2 Delivery Device Room air Inspired O2 21 % Critical Value Yes Sodium 126 L (136-145) meq/L Potassium 5.0 (3.5-5.1) meq/L Chloride 92 L (98-107) meq/L Carbon Dioxide 17.9 L (21.0-32.0) meq/L Anion Gap 16 H (5-15) meq/L BUN 18 (7-18) mg/dL Creatinine 1.54 H (0.60-1.30) mg/dL Estimated GFR 48 L (>89) mL/min Random Glucose 258 H (74-106) mg/dL Lactic Acid (0.4-2.0) mmol/L Calcium 9.3 (8.5-10.1) mg/dL Magnesium 1.3 L (1.5-2.5) mg/dL Total Bilirubin 0.6 (0.2-1.0) mg/dL AST 24 (15-37) U/L ALT 29 (12-78) U/L Alkaline Phosphatase 73 (45-117) U/L Total Protein 8.3 H (6.4-8.2) g/dL Albumin 4.7 (3.4-5.0) g/dL Lipase 123 (73-393) U/L Beta-Hydroxybutyric Acd (0.00-0.39) mmol/L Urine Color (Yellw/Straw) Urine Clarity (Clear) Urine pH (5.0-8.5) Ur Specific [place] (1.002-1.035) Urine Protein (Neg-Trace) mg/dL Urine Glucose (UA) (Negative) mg/dL Urine Ketones (Negative) mg/dL Urine Occult Blood (Negative) Urine Nitrate (Negative) Urine Bilirubin (Negative) Urine Urobilinogen (Less than 2) mg/dL Ur Leukocyte Esterase (Negative) Hyaline Casts (0-3) /lpf Micro UA Comment Ur Microscopic Review Urine Culture Comments 12/23/17 12/23/17 12/23/17 Range/Units 07:00 07:00 08:32 WBC (4.0-11.0) th/mm3 RBC (4.50-5.90) mil/mm3 Hgb (13.0-17.0) gm/dL Hct (39.0-51.0) % MCV (80.0-100.0) fL MCH (27.0-34.0) pg MCHC (32.0-36.0) % RDW (11.6-17.2) % Plt Count (150-450) th/mm3 MPV (7.0-11.0) fL Neut % (Auto) (16.0-70.0) % Lymph % (Auto) (9.0-44.0) % Mcintosh % (Auto) (0.0-8.0) % Eos % (Auto) (0.0-4.0) % Baso % (Auto) (0.0-2.0) % Neut # (Auto) (1.8-7.7) th/mm3 Lymph # (Auto) (1.0-4.8) th/mm3 Mcintosh # (Auto) (0.0-0.9) th/mm3 Eos # (Auto) (0.0-0.4) th/mm3 Baso # (Auto) (0.0-0.2) th/mm3 WBC Differential Differential Comment Puncture Site Patient Temperature VBG pH (7.360-7.400) VBG pCO2 (44-48) mmHG VBG pO2 (35-40) mmHG VBG HCO3 (22-26) mmol/L VBG O2 Saturation (70-76) % VBG O2 Content (9.0-17.0) Vol % VBG Base Excess (-2-2) mmol/L VBG Carboxyhemoglobin (0-4) % VBG Methemoglobin (0-2) % Hemoglobin (12.0-16.0) G/DL O2 Delivery Device Inspired O2 % Critical Value Sodium (136-145) meq/L Potassium (3.5-5.1) meq/L Chloride (98-107) meq/L Carbon Dioxide (21.0-32.0) meq/L Anion Gap (5-15) meq/L BUN (7-18) mg/dL Creatinine (0.60-1.30) mg/dL Estimated GFR (>89) mL/min Random Glucose (74-106) mg/dL Lactic Acid 2.4 H (0.4-2.0) mmol/L Calcium (8.5-10.1) mg/dL Magnesium (1.5-2.5) mg/dL Total Bilirubin (0.2-1.0) mg/dL AST (15-37) U/L ALT (12-78) U/L Alkaline Phosphatase (45-117) U/L Total Protein (6.4-8.2) g/dL Albumin (3.4-5.0) g/dL Lipase (73-393) U/L Beta-Hydroxybutyric Acd 1.27 H (0.00-0.39) mmol/L Urine Color Yellow (Yellw/Straw) Urine Clarity Clear (Clear) Urine pH 5.0 (5.0-8.5) Ur Specific [place] 1.027 (1.002-1.035) Urine Protein Negative (Neg-Trace) mg/dL Urine Glucose (UA) 50 (Negative) mg/dL Urine Ketones 20 (Negative) mg/dL Urine Occult Blood Negative (Negative) Urine Nitrate Negative (Negative) Urine Bilirubin Negative (Negative) Urine Urobilinogen Less than 2 (Less than 2) mg/dL Ur Leukocyte Esterase Negative (Negative) Hyaline Casts 11 (0-3) /lpf Micro UA Comment Culture not ind Ur Microscopic Review Not Reportable Urine Culture Comments Culture not ind Imaging Data Radiologist's impression: Abdomen/Pelvis CT 12/23/17 06:04 CONCLUSION: 1. Intrahepatic and extrahepatic biliary distention, conceivably post cholecystectomy reservoir effect but appears change from the comparison. Clinical and serologic evaluation for biliary obstruction recommended. 2. Mild fatty infiltration of the liver. 3. No obstruction or inflammatory changes are seen of the gastrointestinal tract. 4. Atherosclerotic aorta. No aneurysm.. 5. Stable benign-appearing left renal cyst. Chest X-Ray 12/23/17 08:56 CONCLUSION: No acute cardiopulmonary findings. Stable compared to prior exam. Discharge Plan Physicians Team ED Provider: Kulwant Pittman Primary Care Provider: Adonay Buitrago Rxs /Orders / Referrals /Forms Prescriptions: No Action metformin 500 mg Tablet 500 mg PO TID RF: 0 bupropion HCl 150 mg Tablet Sustained-Release 12 Hr 150 mg PO BID RF: 0 carvedilol 6.25 mg Tablet 6.25 mg PO BID RF: 0 pantoprazole 40 mg Tablet,Delayed Release (Dr/Ec) 40 mg PO DAILY RF: 0 lisinopril 10 mg Tablet 10 mg PO DAILY RF: 0 gabapentin 300 mg Capsule 300 mg PO TID RF: 0 aspirin 81 mg Tablet,Chewable 81 mg PO DAILY RF: 0 vitamin B complex [B Complex 1] Tablet 1 PO DAILY RF: 0 metoclopramide HCl 10 mg Tablet 10 mg PO TID RF: 0 rosuvastatin 10 mg Tablet 10 mg PO DAILY RF: 0 dulaglutide [Trulicity] 0.75 mg/0.5 mL Pen Injector 0.75 mg SUBCUT QWEEK RF: 0 Vitamin D3 1,000 PO DAILY RF: 0 multivitamin 1 tab PO DAILY RF: 0 Discharge Interventions Interventions: Vital Signs Last Done: 12/23/17 08:33 Status ED Status: Pending Admission
[2017-12-23 05:12] LABS: Baso # (Auto) 0.1 th/mm3 (0.0-0.2); Baso % (Auto) 0.4 % (0.0-2.0); Eos # (Auto) 0.2 th/mm3 (0.0-0.4); Eos % (Auto) 0.9 % (0.0-4.0); Hematocrit 42.6 % (39.0-51.0); Hemoglobin 14.9 gm/dL (13.0-17.0); Lymph # (Auto) 3.5 th/mm3 (1.0-4.8); Mean Corpuscular Hemoglobin 33.3 pg (27.0-34.0); Mean Corpuscular Volume 95.3 fL (80.0-100.0); Mean Platelet Volume 7.7 fL (7.0-11.0); Mono # (Auto) 0.9 th/mm3 (0.0-0.9); Mono % (Auto) 4.9 % (0.0-8.0); Neut # (Auto) 12.9 th/mm3 (1.8-7.7); Neut % (Auto) 73.8 % (16.0-70.0); Platelet Count 378 th/mm3 (150-450); Red Blood Count 4.47 mil/mm3 (4.50-5.90); Red Cell Distribution Width 13.1 % (11.6-17.2); White Blood Count 17.5 th/mm3 (4.0-11.0)
[2017-12-23 05:29] LABS: Alanine Aminotransferase 29 U/L (12-78); Albumin 4.7 g/dL (3.4-5.0); Anion Gap 16 meq/L (5-15); Aspartate Aminotransferase 24 U/L (15-37); Blood Urea Nitrogen 18 mg/dL (7-18); Calcium 9.3 mg/dL (8.5-10.1); Carbon Dioxide 17.9 meq/L (21.0-32.0); Chloride 92 meq/L (98-107); Glomerular Filtration Rate 48 mL/min (>89); Glucose,Random 258 mg/dL (74-106); Lipase 123 U/L (73-393); Magnesium 1.3 mg/dL (1.5-2.5); Sodium 126 meq/L (136-145)
[2017-12-23 05:31] LABS: Alkaline Phosphatase 73 U/L (45-117); Total Protein 8.3 g/dL (6.4-8.2)
[2017-12-23] MEDS ORDERED: Mag Sulf 1 gm/100 ml Premix 100 ML IV.SIG ONE (06:03)
[2017-12-23] MEDS ORDERED: Sod Chloride 0.9% Inj 1,000 ML IV.SIG SCH (06:15)
[2017-12-23 06:28] LABS: VBG Base Excess -2.2 mmol/L (-2-2); VBG Blood Gas Oxygen Content 5.7 Vol % (9.0-17.0); VBG PCO2 42 mmHG (44-48); VBG PH 7.35 (7.360-7.400); VBG PO2 21 mmHG (35-40)
--- NOTE | 2017-12-23 06:59 | CT ---
EXAM DATE: 12/23/2017 6:51 AM EST AGE/SEX: 52 years / Male INDICATIONS: Abdominal pain, nausea vomiting for 2 days. CLINICAL DATA: This is the patient's initial encounter. Patient reports that signs and symptoms have been present for 2 days and indicates a pain score of 8/10. MEDICAL/SURGICAL HISTORY: Gastroparesis. Diabetes mellitus type II. Appendectomy. Hernia repai r. ORAL CONTRAST: No oral contrast ingested. RADIATION DOSE: 6.64 CTDI (mGy) COMPARISON: [facility], CT ABDOMEN & PELVIS W CONTRAST, 07/10/2017. . TECHNIQUE: Multiple contiguous axial images were obtained through the abdomen and pelvis following b olus infusion of 80 ml Omnipaque 350 (iohexol) nonionic water-soluble contrast as a single exam dos e. No oral contrast ingested. Using automated exposure control and adjustment of the mA and/or kV ac cording to patient size, radiation dose was kept as low as reasonably achievable to obtain optimal di agnostic quality images. DICOM format image data is available electronically for review and comparis on. FINDINGS: Liver is mild fatty infiltrated. Patient has had cholecystectomy. Mild biliary distention noted, conc eivably related to cholecystectomy but appears increased. Spleen, pancreas and adrenal glands are wit hin normal limits. 2.5 cm left lower pole renal cyst unchanged. No obstruction or acute inflammatory changes are seen of the gastrointestinal tract. No free fluid or free air. No lymphadenopathy. Moderate stool seen throughout colon. There is a small hiatal hernia. There is atherosclerosis of the abdominal aorta. No aneurysm. Visualized lung bases are clear. No acute bony abnormalities are demonstrated. CONCLUSION: 1. Intrahepatic and extrahepatic biliary distention, conceivably post cholecystectomy reservoir effe ct but appears change from the comparison. Clinical and serologic evaluation for biliary obstruction recommended. 2. Mild fatty infiltration of the liver. 3. No obstruction or inflammatory changes are seen of the gastrointestinal tract. 4. Atherosclerotic aorta. No aneurysm.. 5. Stable benign-appearing left renal cyst. Electronically signed by: Richard Gagnon MD 12/23/2017 6:58 AM EST
[2017-12-23 09:00] LABS: Bilirubin,Urine Negative (Negative); Clarity,Urine Clear (Clear); Color,Urine Yellow (Yellw/Straw); Glucose,Urine (UA) 50 mg/dL (Negative); Hyaline Casts,Urine 11 /lpf (0-3); Leukocyte Esterase,Urine Negative (Negative); Nitrite,Urine Negative (Negative); Specific Gravity,Urine 1.027 (1.002-1.035)
--- NOTE | 2017-12-23 09:13 | XR ---
EXAM DATE: 12/23/2017 9:11 AM EST AGE/SEX: 52 years / Male INDICATIONS: Nausea, abdomen pains, patient states he has Ketoacidosis. CLINICAL DATA: This is the patient's initial encounter. Patient reports that signs and symptoms have been present for 1 day and indicates a pain score of 0/10. MEDICAL/SURGICAL HISTORY: Diabetes mellitus type II. Myocardial infarction. Pacemaker. COMPARISON: [facility], CHEST SINGLE AP, 07/10/2017. . FINDINGS: A single AP view of the chest demonstrates the lungs to be symmetrically aerated without evidence of mass, infiltrate or effusion. The cardiomediastinal contours are unremarkable. Osseous structures a re intact. The transvenous pacer is in good position. CONCLUSION: No acute cardiopulmonary findings. Stable compared to prior exam. Electronically signed by: Darrick Sawyer MD 12/23/2017 9:12 AM EST
[2017-12-23] MEDS ORDERED: Dextrose 5%/NaCl 0.9% Inj 1,000 ML IV.CONT SCH (09:15)
--- NOTE | 2017-12-23 10:46 | P.HPIM ---
History of Present Illness Primary Care Physician: Adonay Buitrago Chief Complaint: nausea/vomiting History of Present Illness: patient is a 52 y/o male with history of diabetes, gastroparesis and CAD who presented to ER with nausea and vomiting. he says that he's had nausea/vomiting for a couple of days. he had mild lower abdominal pain. he denies any fever, cough, sob or urinary complaints.he says that he hasn't eaten as much for the past two days. Inpatient Certification: I certify that the inpatient services were ordered in accordance with Medicare regulations governing the order. This includes certification that hospital inpatient services are reasonable and necessary and in the case of services not specified as inpatient-only under 42 CFR 419.22(n), that they are appropriately provided as inpatient services in accordance to with the 2-midnight benchmark under 43 CFR 412.3(e) Estimated Total Length of Stay (Days): 2 Plans for Post Hospital Care: Home Review of Systems All other systems reviewed negative except as stated in [facility] - History History Provided By: Patient - Medical History Medical History: Medical History (Last Reviewed 12/23/17 @ 10:39 by Mesha Casillas MD) Cholecystectomy planned Diabetes type 2, controlled Gastroparesis - Surgical History Surgical History: Surgical History (Last Reviewed 12/23/17 @ 10:39 by Mesha Casillas MD) History of appendectomy History of hernia surgery - Family History Family History: Family History (Last Updated 12/23/17 @ 10:39 by Mesha Casillas MD) Other Family history of diabetes mellitus - Tobacco History Second Hand Smoke Exposure: No Tobacco Use In Past 30 Days: No Smoking Status: Former smoker Tobacco Type: Cigarettes - Alcohol History How Often Do You Have a Drink Containing Alcohol: Never - Substance Use History Substance History: Active Abuse - Substance Use Type Marijuana Status: Active Route Used: Inhalation Reason for Use: Feels Good - Travel History Recent Travel in the [place] Within the Last 8 Weeks: No Recent Travel Out of the Country Within the Last 8 Weeks: No - Immunization History Tetanus Immunization: Unsure Medications and Allergies Active Medications: Active Medications Dextrose/Sodium Chloride (D5w/Normal Saline Inj) 1,000 mls @ 200 mls/hr IV.CONT .Q5H KEN Last Admin: 12/23/17 09:24 Dose: 200 mls/hr Sodium Chloride (Ns Flush) 2 ml IV.FLUSH PRN PRN PRN Reason: FLUSH AFTER USING IV ACCESS Allergies Allergy/AdvReac Type Severity Reaction Status Date / Time No Known Allergies Allergy Verified 12/23/17 04:15 Home Medications Medication Instructions Recorded Confirmed Type Vitamin D3 1,000 PO DAILY 12/23/17 History aspirin 81 mg PO DAILY 12/23/17 12/23/17 History bupropion HCl 150 mg PO BID 12/23/17 12/23/17 History carvedilol 6.25 mg PO BID 12/23/17 12/23/17 History dulaglutide [Trulicity] 0.75 mg SUBCUT QWEEK 12/23/17 12/23/17 History gabapentin 300 mg PO TID 12/23/17 12/23/17 History lisinopril 10 mg PO DAILY 12/23/17 12/23/17 History metformin 500 mg PO TID 12/23/17 12/23/17 History metoclopramide HCl 10 mg PO TID 12/23/17 12/23/17 History multivitamin 1 tab PO DAILY 12/23/17 12/23/17 History pantoprazole 40 mg PO DAILY 12/23/17 12/23/17 History rosuvastatin 10 mg PO DAILY 12/23/17 12/23/17 History vitamin B complex [B Complex 1] 1 PO DAILY 12/23/17 History Exam Vital signs: Vital Signs 12/23/17 04:15 12/23/17 04:54 12/23/17 08:33 Temperature 97.7 F Pulse Rate 97 H 78 Respiratory Rate 16 20 18 Blood Pressure 166/79 H 112/72 Pulse Oximetry 97 98 Intake & Output 12/22/17 12/23/17 12/23/17 18:59 06:59 18:59 Weight 57.153 kg - Constitutional no acute distress - Routine HEENT Exam Eye: Present: PERRL - Routine Neck Exam Present: supple - Routine Respiratory Exam Present: CTA bilaterally - Routine Cardiovascular Exam Present: RRR - Routine Abdominal Exam Present: soft - Routine Extremities Exam Comments: no pedal edema. - Routine Neurological Exam Present: alert, oriented X3 Results - Labs CBC & Chem 7: 12/23/17 05:00 12/23/17 10:35 Labs: Short CBC 12/23/17 Range/Units 05:00 WBC 17.5 H (4.0-11.0) th/mm3 Hgb 14.9 (13.0-17.0) gm/dL Hct 42.6 (39.0-51.0) % Plt Count 378 (150-450) th/mm3 BMP 12/23/17 05:00 Sodium 126 L Potassium 5.0 Chloride 92 L Carbon Dioxide 17.9 L BUN 18 Creatinine 1.54 H Calcium 9.3 Liver Function 12/23/17 Range/Units 05:00 Total Bilirubin 0.6 (0.2-1.0) mg/dL AST 24 (15-37) U/L ALT 29 (12-78) U/L Alkaline Phosphatase 73 (45-117) U/L Albumin 4.7 (3.4-5.0) g/dL Urine 12/23/17 Range/Units 08:32 Urine Color Yellow (Yellw/Straw) Urine Clarity Clear (Clear) Urine pH 5.0 (5.0-8.5) Ur Specific [place] 1.027 (1.002-1.035) Urine Protein Negative (Neg-Trace) mg/dL Urine Glucose (UA) 50 (Negative) mg/dL - Imaging Impressions Abdomen/Pelvis CT 12/23/17 06:04 CONCLUSION: 1. Intrahepatic and extrahepatic biliary distention, conceivably post cholecystectomy reservoir effect but appears change from the comparison. Clinical and serologic evaluation for biliary obstruction recommended. 2. Mild fatty infiltration of the liver. 3. No obstruction or inflammatory changes are seen of the gastrointestinal tract. 4. Atherosclerotic aorta. No aneurysm.. 5. Stable benign-appearing left renal cyst. Chest X-Ray 12/23/17 08:56 CONCLUSION: No acute cardiopulmonary findings. Stable compared to prior exam. Caprini VTE Risk Assessment Caprini VTE Risk Assessment: Moderate/High Risk (score >= 2) Caprini Risk Assessment Model: Point Value = 1 Point Value = 2 Point Value = 3 Point Value = 5 Age 41-60 Minor surgery BMI > 25 kg/m2 Swollen legs Varicose veins or History of unexplained or recurrent spontaneous Oral contraceptives or hormone replacement Sepsis (< 1 month) Serious lung disease, including pneumonia (< 1 month) Abnormal pulmonary function Acute myocardial infarction Congestive heart failure (< 1 month) History of inflammatory bowel disease Medical patient at bed rest Age 61-74 Arthroscopic surgery Major open surgery (> 45 min) Laparoscopic surgery (> 45 min) Malignancy Confined to bed (> 72 hours) Immobilizing plaster cast Central venous access Age >= 75 History of VTE Family history of VTE Factor V Leiden Prothrombin [id number] Lupus anticoagulant Anticardiolipin antibodies Elevated serum homocysteine Heparin-induced thrombocytopenia Other congenital or acquired thrombophilia Stroke (< 1 month) Elective arthroplasty Hip, pelvis, or leg fracture Acute spinal cord injury (< 1 month) Prophylaxis Regimen: Total Risk Factor Score Risk Level Prophylaxis Regimen 0-1 Low Early ambulation 2 Moderate Order ONE of the following: *Sequential Compression Device (SCD) *Heparin 5000 units SQ BID 3-4 Higher Order ONE of the following medications: *Heparin 5000 units SQ TID *Enoxaparin/Lovenox 40 mg SQ daily (WT < 150 kg, CrCl > 30 mL/min) *Enoxaparin/Lovenox 30 mg SQ daily (WT < 150 kg, CrCl > 10-29 mL/min) *Enoxaparin/Lovenox 30 mg SQ BID (WT < 150 kg, CrCl > 30 mL/min) AND/OR *Sequential Compression Device (SCD) 5 or more Highest Order ONE of the following medications: *Heparin 5000 units SQ TID (Preferred with Epidurals) *Enoxaparin/Lovenox 40 mg SQ daily (WT < 150 kg, CrCl > 30 mL/min) *Enoxaparin/Lovenox 30 mg SQ daily (WT < 150 kg, CrCl > 10-29 mL/min) *Enoxaparin/Lovenox 30 mg SQ BID (WT < 150 kg, CrCl > 30 mL/min) AND *Sequential Compression Device (SCD) Assessment and Plan - Plan A/P - mild diabetic Ketoacidosis clinically better-continue with IV fluid- will start on subq Insulin soon pending BMP. check A1c. -acute kidney injury; repeat BMP today- continue with IV fluid -hyponatremia; likely due to hyperglycemia- continue to monitor -leukocytosis- likely reactive- will monitor. -CAD- resume aspirin and Coreg -gastroparesis; resume Reglan -Hypomagnesemia; replaced; will monitor. -DVT prophylaxis with subq lovenox Discussed Condition With: ER physician and the patient. Discharge Planning: within the next 48 hrs if stable.
[2017-12-23 11:12] LABS: Calcium 7.8 mg/dL (8.5-10.1); Carbon Dioxide 21.3 meq/L (21.0-32.0); Potassium 4.8 meq/L (3.5-5.1)
[2017-12-23] MEDS ORDERED: Dextrose 50% in Water 50 ML Vial IV.PUSH PRN (12:08)
[2017-12-23] MEDS: Metoclopramide 10 MG Tablet PO SCH ×2 (12:59→19:05)
[2017-12-23] MEDS: Sod Chloride 0.9% Inj 1,000 ML IV.CONT SCH ×2 (13:00→23:22)
[2017-12-23] MEDS: Enoxaparin Inj 40 MG/0.4 ML Syringe SQ SCH (13:00)
[2017-12-23] MEDS: Gabapentin 300 MG Capsule PO SCH ×2 (13:00→19:07)
[2017-12-23 13:48] LABS: Hemoglobin A1c 6.6 % (4.3-6.0)
[2017-12-23] MEDS: Insulin Detemir Inj 1,000 UNIT/10 ML Vial SQ SCH (16:56)
[2017-12-23] MEDS: Insulin NovoLOG Aspart Correctional Sugar Inj SQ SCH ×2 (19:07→21:05)
[2017-12-23] MEDS: buPROPion 150 MG 12 HR Tablet PO SCH (21:06)
[2017-12-23] MEDS: Carvedilol 6.25 MG Tablet PO SCH (21:06)
[2017-12-24] MEDS: buPROPion 150 MG 12 HR Tablet PO SCH (08:04)
[2017-12-24] MEDS: Gabapentin 300 MG Capsule PO SCH ×2 (08:04→12:39)
[2017-12-24] MEDS: Carvedilol 6.25 MG Tablet PO SCH (08:05)
[2017-12-24] MEDS: Metoclopramide 10 MG Tablet PO SCH ×2 (08:05→12:39)
[2017-12-24 08:08] LABS: Baso % (Auto) 0.4 % (0.0-2.0); Eos # (Auto) 0.2 th/mm3 (0.0-0.4); Eos % (Auto) 1.7 % (0.0-4.0); Hematocrit 34.1 % (39.0-51.0); Lymph # (Auto) 3.8 th/mm3 (1.0-4.8); Lymph % (Auto) 40.4 % (9.0-44.0); Mean Corpuscular HGB Conc 35.2 % (32.0-36.0); Mean Corpuscular Hemoglobin 33.4 pg (27.0-34.0); Mean Corpuscular Volume 95.1 fL (80.0-100.0); Mean Platelet Volume 7.5 fL (7.0-11.0); Neut # (Auto) 4.5 th/mm3 (1.8-7.7); Neut % (Auto) 47.5 % (16.0-70.0); Platelet Count 329 th/mm3 (150-450); Red Blood Count 3.59 mil/mm3 (4.50-5.90); White Blood Count 9.5 th/mm3 (4.0-11.0)
[2017-12-24 08:51] LABS: Alanine Aminotransferase 61 U/L (12-78); Albumin 3.4 g/dL (3.4-5.0); Alkaline Phosphatase 73 U/L (45-117); Anion Gap 8 meq/L (5-15); Aspartate Aminotransferase 39 U/L (15-37); Blood Urea Nitrogen 7 mg/dL (7-18); Calcium 7.9 mg/dL (8.5-10.1); Carbon Dioxide 24.2 meq/L (21.0-32.0); Chloride 104 meq/L (98-107); Glomerular Filtration Rate Greater Than 89 mL/min (>89); Glucose,Random 129 mg/dL (74-106); Magnesium 1.3 mg/dL (1.5-2.5); Potassium 4.5 meq/L (3.5-5.1); Sodium 136 meq/L (136-145); Total Protein 6.4 g/dL (6.4-8.2)
[2017-12-24] MEDS: Insulin Detemir Inj 1,000 UNIT/10 ML Vial SQ SCH (09:00)
[2017-12-24 09:58] VITALS: RESP 18
[2017-12-24] MEDS ORDERED: Mag Sulf 1 gm/100 ml Premix 100 ML IV.SIG SCH (10:00)
[2017-12-24] MEDS: Insulin NovoLOG Aspart Correctional Sugar Inj SQ SCH (11:17)
[2017-12-24] MEDS: Enoxaparin Inj 40 MG/0.4 ML Syringe SQ SCH (11:21)
[2017-12-24 12:16] VITALS: BP 149/88; TEMP 98.3; O2SAT 98
--- NOTE | 2017-12-24 12:33 | P.PNIM ---
Subjective Interval history: The patient was feeling well. He was anxious to go home and watch a football game. He said that the magnesium burned his arm. He said he will take over-the -counter supplements. He is tolerating a diet. He has enough diabetes supplies at home. Discussed with nursing. Physical Exam Vital signs: Vital Signs 12/23/17 12:57 12/23/17 16:00 12/23/17 19:00 Temperature 98.9 F Pulse Rate 88 89 89 Respiratory Rate 18 20 Blood Pressure 109/58 L 141/88 H Pulse Oximetry 95 98 12/23/17 20:00 12/23/17 21:00 12/23/17 22:00 Temperature 98.4 F Pulse Rate 86 76 72 Respiratory Rate 16 Blood Pressure 144/88 H Pulse Oximetry 98 12/23/17 23:00 12/24/17 00:00 12/24/17 01:00 Temperature Pulse Rate 80 70 68 Respiratory Rate 16 Blood Pressure 139/77 Pulse Oximetry 97 12/24/17 02:00 12/24/17 03:00 12/24/17 04:00 Temperature Pulse Rate 66 68 84 Respiratory Rate 16 Blood Pressure 124/71 Pulse Oximetry 97 12/24/17 05:00 12/24/17 06:00 12/24/17 07:00 Temperature Pulse Rate 74 70 64 Respiratory Rate Blood Pressure Pulse Oximetry 12/24/17 08:00 12/24/17 09:00 12/24/17 12:00 Temperature 98.2 F 98.3 F Pulse Rate 86 68 65 Respiratory Rate 18 18 Blood Pressure 151/99 H 149/88 H Pulse Oximetry 99 98 Intake & Output 12/23/17 12/24/17 12/24/17 18:59 06:59 18:59 Intake Total 2800 / 2800 1480 / 1480 Output Total 700 / 700 1200 / 1200 Balance 2100 / 2100 280 / 280 Weight 57 kg Intake: IV 2600 / 2600 1000 / 1000 D5W/Normal Saline Inj 1,000 ML 500 / 500 @ 200 mls/hr IV.CONT .Q5H KEN Rx#:[id number] NS Inj 1,000 ML @ 100 mls/hr IV 1000 / 1000 .CONT .Q10H KEN Rx#:[id number] Oral 200 / 200 480 / 480 Output: Urine 700 / 700 1200 / 1200 Narrative: GENERAL: Well-nourished, well-developed patient. SKIN: Focused skin assessment cool/dry. HEAD: Normocephalic. EYES: No scleral icterus. No injection or drainage. NECK: Supple, trachea midline. No JVD or lymphadenopathy. CARDIOVASCULAR: Regular rate and rhythm without murmurs, gallops, or rubs. RESPIRATORY: Breath sounds equal bilaterally. No accessory muscle use. GASTROINTESTINAL: Abdomen soft, nontender, nondistended. MUSCULOSKELETAL: No cyanosis, or edema. BACK: Nontender without obvious deformity. No CVA tenderness. Results - Labs CBC & Chem 7: 12/24/17 07:29 12/24/17 07:29 Laboratory Results - last 24 hr 12/23/17 12/23/17 12/23/17 05:00 16:38 21:04 WBC RBC Hgb Hct MCV MCH MCHC RDW Plt Count MPV Neut % (Auto) Lymph % (Auto) [place] % (Auto) Eos % (Auto) Baso % (Auto) Neut # (Auto) Lymph # (Auto) [place] # (Auto) Eos # (Auto) Baso # (Auto) WBC Differential Differential Comment Sodium Potassium Chloride Carbon Dioxide Anion Gap BUN Creatinine Estimated GFR POC Glucose 73 135 H Random Glucose Hemoglobin A1c 6.6 H Calcium Magnesium Total Bilirubin AST ALT Alkaline Phosphatase Total Protein Albumin 12/24/17 12/24/17 12/24/17 07:29 07:29 08:03 WBC 9.5 RBC 3.59 L Hgb 12.0 L D Hct 34.1 L MCV 95.1 MCH 33.4 MCHC 35.2 RDW 13.0 Plt Count 329 MPV 7.5 Neut % (Auto) 47.5 Lymph % (Auto) 40.4 [place] % (Auto) 10.0 H Eos % (Auto) 1.7 Baso % (Auto) 0.4 Neut # (Auto) 4.5 Lymph # (Auto) 3.8 [place] # (Auto) 1.0 H Eos # (Auto) 0.2 Baso # (Auto) 0.0 WBC Differential . Differential Comment Auto diff final Sodium 136 Potassium 4.5 Chloride 104 Carbon Dioxide 24.2 Anion Gap 8 BUN 7 Creatinine 0.84 Estimated GFR Greater than 89 POC Glucose 192 H Random Glucose 129 H Hemoglobin A1c Calcium 7.9 L Magnesium 1.3 L Total Bilirubin 0.4 AST 39 H ALT 61 Alkaline Phosphatase 73 Total Protein 6.4 D Albumin 3.4 D Microbiology 12/23/17 09:30 Blood - Peripheral Aerobic Blood Culture - Preliminary No growth in 1 day 12/23/17 09:30 Blood - Peripheral Anaerobic Blood Culture - Preliminary No growth in 1 day 12/23/17 09:35 Blood - Peripheral Aerobic Blood Culture - Preliminary No growth in 1 day 12/23/17 09:35 Blood - Peripheral Anaerobic Blood Culture - Preliminary No growth in 1 day Assessment and Plan - Plan mild diabetic Ketoacidosis clinically better-on insulin. Tolerating a diet. Asymptomatic. Labs are stable. Resume home regimen. A1c 6.6%. Follow up with PCP. -acute kidney injury: improved with fluids. -hyponatremia; likely due to hyperglycemia- continue to monitor. Resolved. -leukocytosis- likely reactive- will monitor. Resolved. -CAD- resume aspirin and Coreg. Stable. -gastroparesis; resume Reglan. -Hypomagnesemia; replaced; will monitor. PO repletion ordered as IV formulary burned his arm. -DVT prophylaxis with subq lovenox Discharge Planning: d/c home
[2017-12-24] MEDS ORDERED: Magnesium Oxide 400 MG Tablet PO ONE (12:45)
[2017-12-24 12:49] VITALS: PULSE 62
--- NOTE | 2017-12-24 14:00 | ECG ---
Date Performed: 12/23/2017 Time Performed: 09:37:42 PTAGE: 52 years EKG: Sinus rhythm SEPTAL MYOCARDIAL INFARCTION MODERATE T-WAVE ABNORMALITY, CONSIDER ANTEROLATERAL ISCHEMIA ABNORMAL E CG PREVIOUS TRACING : 07/10/2017 07.33 Since the previous tracing, no significant change noted DOCTOR: Jai Glover Interpretating Date/Time 12/24/2017 14:00:02
== END 2017-12-24 12:45 | disposition home or self-care (01) | DRG 638 ==
LOC: NEPC 04:11 → NEDA 10:12 → HCIS 15:46
PROVIDERS: ADMIT Hospitalist; ATTEND Hospitalist
CPT/HCPCS: 71010; 71045; 74177; 80048; 80053; 81001; 82010; 82803; 82805; 82948; 82962; 83036; 83605; 83690; 83735; 85025; 87040; 90774; 90775; 90784; 93005; 96374; 96375; 99285; C8952; J1650; J1815; J2270; J2405; J3475; J7030; J7042; Q9967